=== PATIENT | male | born 1965 | race Caucasian/White ===

== ENCOUNTER 2024-02-18 08:02 | Day surgery (SDC) | payer BC, SELFPAY ==
[2024-02-12 14:57] VITALS: BMI 26.4
--- OUTSIDE RECORDS SUMMARY | 2024-02-18 08:11 | XMS_ITS | Clinical Summary ---
Author Organization [facility] Address [address] [place] [address] Care Team Providers Care Head Trimmer Name Role Phone Alexis Nguyen DC Primary Care Provider [phone] Allergies No known active allergies Medications oxyCODONE (Roxicodone) 5 MG immediate release tabletIndication s:Sprain of left knee, unspecified ligament, initial encounter,Knee effusion, left,Hyperextens ion injury of left knee, initial encounter Take 1 tablet by mouth Every 4 (Four) Hours As Needed for Severe Pain. 8 tablet 2 Active multivitamin with minerals tablet tablet Take 1 tablet by mouth Daily. Active oxyCODONE (ROXICODONE) 5 MG immediate release tabletIndication s:Quadriceps tendon rupture, left, initial encounter Take 1-2 tablets by mouth Every 4 (Four) Hours As Needed for Moderate Pain. 24 tablet 2 Active aspirin EC 325 MG tablet Take 1 tablet by mouth Daily. 28 tablet 2 Active Active Problems Problem Noted Date Diagnosed Date Quadriceps tendon rupture, left, initial encount er 12/15/2021 Immunizations Name Administration Dates Next Due COVID-19 (DARRELL) 07/20/2020 Social History Tobacco Use Types Packs/Day Years Used Date Smoking Tobacco: Never Smokeless Tobacco: Never Alcohol Use Standard Drinks/Week Comments Yes 0 (1 standard drink = 0.6 oz pur e alcohol) social drinker Abuse Screen Answer Date Recorded Unsafe at Home or Work/School Not on file Feels Threatened by Someone? Not on file 09/2022 Does Anyone Keep You from Co ntacting Others or Doint Things Outside the Home? Not on file 12/23/2022 Physical Sign of Abuse Present Not on file 1 Housing Stability Answer Date Recorded Current Living Arrangements Not on file 09/2022 Potentially Unsafe Housing Conditions Not on shayy e 12/23/2022 Family and Community Support Answer Stanley e Recorded Help with Day-to-Day Activities Not on file 12/23/2022 Lonely or Isolated Not on file 12/23/2022 Employment Answer Date Recorded Do you want help finding or keeping work or a hill b? Not on file 12/23/2022 Disabilities Answer Date Recorded Concentrating, Remembering, or Making Decisions Difficulty Not on file 12/23/2022 Doing Errands Independently Difficulty Not on fi le 12/23/2022 Education Answer Date Recorded Help with school or training? Not on file Preferred Language Not on file 12/23/2022 Sex and Gender Information Value Date Recorded Sex Assigned at Not on file Legal Sex Male 12:15 PM EST Gender Identity Not on file Sexual Orientation Not on file Last Filed Vital Signs Vital Sign Reading Time Taken Comments Blood Pressure 131/72 12/15/2021 12:05 PM EDT Pulse 80 12/15/2021 11:30 AM EDT Temperature 36.9 ??C (98.4 ??F) 12/15/2021 12:05 PM E DT Respiratory Rate 17 12/15/2021 12:05 PM EDT Oxygen Saturation 100% 12/15/2021 12:05 PM EDT Inhaled Oxygen Concentration - - Weight 109 kg (240 lb) 12/15/2021 9:05 AM EDT Height 203.2 cm (6' 8 ) 12/15/2021 9:05 AM EDT Body Mass Index 26.37 12/15/2021 9:05 AM EDT Plan of Treatment Health Maintenance Due Date Last Done Comments COLOGUARD 1965 COLON CANCER SCREENING 5 YEA R SIGMOIDOSCOPY 1964 COLONOSCOPY 1964 COLORECTAL CANCER SCREENING 1964 CT COLONOGRAPHY 1964 FECAL OCCULT BLOOD TEST 1964 FIT Testing (1 year) 1964 TDAP/TD VACCINES (1 - Tdap) 01/02/1983 ANNUAL PHYSICAL 12/13/2021 HEPATITIS C SCREENING 12/13/2021 INFLUENZA VACCINE 09/17/2023 COVID-19 Vaccine (2023-2 5 season) 2023 07/20/2021, 01/12/2021, 07/20/2020 ZOSTER VACCINE Completed 02/16/2020, 11/13/2019 Pneumococcal Vaccine 0-64 Aged Out No longer eligible based on patient's age to complete this topic Medical Devices Implanted Type Area Assistant Food Service Manager Device Identifier Shelf Expiration Date Model / Serial / Lot Sut Bone Dynacord W/Os/6 Ndl 2pk Strip/Jeanmarie - [id number] Implanted:Qty : 1 on 12/15/2021 by Vamshi Ordoñez MD at [facility] Implant Left: Knee DEPUY MITEK [id number] 12/16/2025 [id number] / / [id number] Dev Contrl Tiss Stratafix Spiral Pgpcl 2/0fs 07x14ps - [id number] Implanted:Qty : 1 on 12/15/2021 by Vamshi Ordoñez MD at [facility] Implant Left: Knee [employer] J [id number] 12/16/2025 [id number] / / [id number] Insurance PPO Member Subscriber Plan / Payer (Ef fective 2021-Present) Name:Hiren Herrera Relation to Subscriber:Self Name:Hiren Herrera Payer ID:[id number] (NAIC) Type:Not on file Address: [facility] [id number] [place] [id number] Care Teams Head Trimmer Relationship Specialty Start Date End Date Alexis Nguyen DC [address] [place] [address] [place] [address] PCP - General Chiropractic Medicine 05/09/21
--- OUTSIDE RECORDS SUMMARY | 2024-02-18 08:11 | XMS_ITS | Encounter Summary ---
Author Organization [facility] Address [address] [place] [address] Care Team Providers Care Grease Renderer Name Role Phone Alexis Nguyen DC Primary Care Provider [phone] Reason for Visit * Auth/Cert Specialty Diagnoses / Procedures Referred By Contac t Referred To Contact Diagnoses Unspecified injury of left quadriceps muscle, fascia and tendon, initial encounter Procedures IN FIX QUAD/HAMSTR MUSC RUPT,PRIMARY KNEE QUADRICEPS TENDON REPAIR Referral ID Status Reason Start Date Expiration Date Visits Re quested Visits Authorized [id number] 1 Encounter Details Date Type Department Care Team (Late st Contact Info) Description 12/13/2021 8:30 AM EDT Pre-Admission Testing [facility] [address] [place] [id number] Social History Tobacco Use Types Packs/Day Years Used Date Smoking Tobacco: Never Smokeless Tobacco: Never Alcohol Use Standard Drinks/Week Comments Yes 0 (1 standard drink = 0.6 oz pur e alcohol) social drinker Sex and Gender Information Value Date Recorded Sex Assigned at Not on file Legal Sex Male 12:15 PM EST Gender Identity Not on file Sexual Orientation Not on file documented as of this encounter Last Filed Vital Signs Vital Sign Reading Time Taken Comments Blood Pressure - - Pulse - - Temperature - - Respiratory Rate - - Oxygen Saturation - - Inhaled Oxygen Concentration - - Weight 109 kg (240 lb) 12/13/2021 9:12 AM EDT Height 203.2 cm (6' 8 ) 12/13/2021 9:12 AM EDT Body Mass Index 26.37 12/13/2021 9:12 AM EDT documented in this encounter OR Notes * Elysia Bianchi J, RN - 12/13/2021 8:30 AM EDT CBC and CMP 12/11/21 during ER visit; Ha1c done in PAT Patient had a recent exposure to COVID 12/07/21 (cowrker) but denies symptoms today and has tested negative two times in the last 7 days. Called and spoke with Criss in Dr Ordoñez's office regarding exposure, per Criss 'do not test' because he needs the surgery either way. No consent order on original orders. Called and spoke with Criss and she will re fax orders to include consent. Patient to apply Chlorhexadine wipes to surgical area (as instructed) the night before procedure and the AM of procedure. Wipes provided. Patient instructed to drink 20 ounces of Gatorade and it needs to be completed 1 hour (for Main OR patients) or 2 hours (scheduled section & [facility] patients) before given arrival time for procedure (NO RED Gatorade) Patient verbalized understanding. An arrival time for procedure was not provided during PAT visit. If patient had any questions or concerns about their arrival time, they were instructed to contact their surgeon/physician. Additionally, if the patient referred to an arrival time that was acquired from their my chart account, patient was encouraged to verify that time with their surgeon/physician. Arrival times are NOT provided inPre Admission Testing Department. Patient denies any current skin issues. documented in this encounter Plan of Treatment Not on file documented as of this encounter Procedures Procedure Name Priority Date/Time Associated Diagnosis Comments ECG 12-LEAD Routine 12/13/2021 9:08 AM EDT HEMOGLOBIN A1C Routine 12/13/2021 8:59 AM EDT documented in this encounter Results * ECG 12 Lead (12/13/2021 9:08 AM EDT) QT Interval 344 ms BH ECG QTC Interval 413 ms ECG 12/13/2021 9:08 AM EDT 12/13/2021 9:59 AM EDT Narrative ECG - 12/13/2021 10:00 AM EDT Test Reason : PREOP Blood Pressure : ?? */* ?? mmHG Vent. Rate : ??87 BPM ? Atrial Rate : ??87 BPM ?? P-R Int : 172 ms ?QRS Dur : ??96 ms ?QT Int : 344 ms ? P-R-T Axes : ??73 ??-1 ??62 degrees ?? QTc Int : 413 ms Normal sinus rhythm with sinus arrhythmia Normal ECG No previous ECGs available Confirmed by JUAN PABLO ARCEO ([id number]) on 12/13/2021 9:59:59 AM Referred By: KJ ? Confirmed By: JUAN PABLO ARCEO Procedure Note Juan Pablo Arceo MD - 12/13/2021 Test Reason : PREOP Blood Pressure : */* mmHG Vent. Rate : 87 BPM Atrial Rate : 87 BPM P-R Int : 172 ms QRS Dur : 96 ms QT Int : 344 ms P-R-T Axes : 73 -1 62 degrees QTc Int : 413 ms Normal sinus rhythm with sinus arrhythmia Normal ECG No previous ECGs available Confirmed by JUAN PABLO ARCEO ([id number]) on 12/13/2021 9:59:59 AM Referred By: KJ Confirmed By: JUAN PABLO ARCEO Vamshi Ordoñez MD ECG ORDERABLES Final Result ECG * Hemoglobin A1c (12/13/2021 8:59 AM EDT) Pathologist [facility] Hemoglobin A1C 4.90 4.80 - 5.60 % 12/13/2021 10:18 AM EDT [facility] Blood Venipuncture / Unknown 12/13/2021 8:59 AM EDT 12/13/2021 9:18 AM EDT Narrative [facility] - 12/13/2021 10:18 AM EDT Hemoglobin A1C Ranges: Increased Risk for Diabetes ??5.7% to 6.4% Diabetes ? >= 6.5% Diabetic Goal ?< 7.0% Vamshi Ordoñez MD LAB BLOOD ORDERABLES F inal Result [facility]
[address] [place] [address], documented in this encounter Visit Diagnoses Not on filedocumented in this encounter Care Teams Grease Renderer Relationship Specialty Start Date End Date Alexis Nguyen DC [address] [place] [address] [place] [address] PCP - General Chiropractic Medicine 05/09/21 documented as of this encounter
--- OUTSIDE RECORDS SUMMARY | 2024-02-18 08:11 | XMS_ITS | Encounter Summary ---
Author Organization [facility] Address [address] [id number] Care Team Providers Care Family Law Legal Assistant Name Role Phone Alexis Nguyen DC Primary Care Provider [phone] Reason for Visit * Reason Comments Knee Pain Encounter Details Date Type Department Care Team (Late st Contact Info) Description 12/11/2021 12:27 AM EDT - 12/11/2021 5:50 AM EDT Emergency [facility] EMERGENCY DEPARTMENT [address] [place] [id number] Roberto Bonner MD [address] [place] [address] Sprain of left knee, unspecified ligament, initial encounter (Primary Dx); Knee effusion, left; Hyperextension injury of left knee, initial encounter Discharge Disposition: Home or Self Care Social History Tobacco Use Types Packs/Day Years Used Date Smoking Tobacco: Never Alcohol Use Standard Drinks/Week Comments Never 0 (1 standard drink = 0.6 oz pur e alcohol) Sex and Gender Information Value Date Recorded Sex Assigned at Not on file Legal Sex Male 12:15 PM EST Gender Identity Not on file Sexual Orientation Not on file documented as of this encounter Last Filed Vital Signs Vital Sign Reading Time Taken Comments Blood Pressure 125/75 12/11/2021 5:30 AM EDT Pulse 76 12/11/2021 5:30 AM EDT Temperature 36.7 ??C (98.1 ??F) 12/11/2021 12:30 AM E DT Respiratory Rate 17 12/11/2021 5:30 AM EDT Oxygen Saturation 95% 12/11/2021 5:30 AM EDT Inhaled Oxygen Concentration - - Weight 109 kg (240 lb) 12/11/2021 12:33 AM EDT Height 203.2 cm (6' 8 ) 12/11/2021 12:33 AM EDT Body Mass Index 26.37 12/11/2021 12:33 AM EDT documented in this encounter Discharge Instructions * Discharge Instructions* Roberto Bonner MD - 12/11/2021 5:16 AM EDT Keep the leg elevated as much as possible. Take anti-inflammatory such as ibuprofen regularly for the next few days. Use the provided crutches and knee immobilizer sparingly and only for comfort. Contact the provided orthopedic surgeon for follow-up. Please return to the ED or seek other medical care for any concerning symptoms. * Attachments The following attachments cannot be sent through Care Everywhere. * Articular Cartilage Injury (Kyrgyz) * Knee Effusion (Kyrgyz) documented in this encounter Medications at Time of Discharge oxyCODONE (Roxicodone) 5 MG immediate release tabletIndications: Sprain of left knee, unspecified ligament, initial encounter,Knee effusion, left,Hyperextensio n injury of left knee, initial encounter Take 1 tablet by mouth Every 4 (Four) Hours As Needed for Severe Pain. 8 tablet 12/11/2021 ibuprofen (ADVIL,MOTRIN) 600 MG tablet Take 1 tablet by mouth Every 6 (Six) Hours As Needed for Mild Pain. 20 tablet 12/11/2021 12/13/2021 methocarbamol (ROBAXIN) 750 MG tablet Take 1 tablet by mouth 3 (Three) Times a Day As Needed for Muscle Spasms. 15 tablet 05/09/2021 12/13/2021 documented as of this encounter ED Notes * Roberto Bonner MD - 12/11/2021 5:50 AM EDT EMERGENCY DEPARTMENT ENCOUNTER Pt Name: Hiren Herrera Pt : 1965 Room Number: Date of encounter: 12/11/2021 PCP: Alexis Nguyen DC ED Provider: Roberto Bonner MD Historian: Patient HPI: Chief Complaint: Fall, knee injury Context: Hiren Herrera is a 56-year-old man who presents the emergency department for evaluation of severe left knee pain and knee and thigh swelling after an injury shortly prior to arrival. He said he was getting out of a hot tub when he slipped he thinks he sustained a hyperextension injury ofthe left knee and had immediate severe pain and swelling. He has been able to place weight on the knee and is able to swing it back and forth but the swelling has progressed and become progressively more painful. He denies any weakness or numbness in his calf or foot. Denies any other injuries. No other complaints at this time. PAST MEDICAL HISTORY History reviewed. No pertinent past medical history. PAST SURGICAL HISTORY History reviewed. No pertinent surgical history. FAMILY HISTORY History reviewed. No pertinent family history. SOCIAL HISTORY Social History Socioeconomic History ??? Marital status: Tobacco Use ??? Smoking status: Never Smoker Substance and Sexual Activity ??? Alcohol use: Never ??? Drug use: Never ALLERGIES Patient has no known allergies. REVIEW OF SYSTEMS Review of Systems All systems reviewed and negative except for those discussed in HPI. PHYSICAL EXAM I have reviewed the triage vital signs and nursing notes. ED Triage Vitals [12/11/21 0030] Temp Heart Rate Resp BP SpO2 98.1 ??F (36.7 ??C) 70 15 135/84 96 % Temp src Heart Rate Source Patient Position BP Location FiO2 (%) Oral Monitor Sitting Right arm -- Physical Exam GENERAL: Appears awake and alert in obvious discomfort HENT: Nares patent. EYES: No scleral icterus. CV: Regular rhythm, regular rate. RESPIRATORY: Normal effort. No audible wheezes, rales or rhonchi. ABDOMEN: Soft, nontender MUSCULOSKELETAL: No deformities. Does not appreciate any deformities to the left knee but he has animpressive effusion in the left suprapatellar area with swelling and firmness extending into the thigh. Range of motion is limited by swelling. Distal to this he has strong dorsal pedal and posteriortibial pulse recognizes light touch over the lower leg and foot and has strong and intact plantar flexion and dorsiflexion. NEURO: Alert, moves all extremities, follows commands. SKIN: Warm, dry, no rash visualized. LAB RESULTS Recent Results (from the past 24 hour(s)) Comprehensive Metabolic Panel Collection Time: 12/11/21 2:05 AM Specimen: Blood Result Value Ref Range Glucose 106 (H) 65 - 99 mg/dL BUN 11 6 - 20 mg/dL Creatinine 0.72 (L) 0.76 - 1.27 mg/dL Sodium 145 136 - 145 mmol/L Potassium 3.7 3.5 - 5.2 mmol/L Chloride 110 (H) 98 - 107 mmol/L CO2 24.0 22.0 - 29.0 mmol/L Calcium 8.6 8.6 - 10.5 mg/dL Total Protein 6.1 6.0 - 8.5 g/dL Albumin 3.90 3.50 - 5.20 g/dL ALT (SGPT) 18 1 - 41 U/L AST (SGOT) 22 1 - 40 U/L Alkaline Phosphatase 35 (L) 39 - 117 U/L Total Bilirubin 0.4 0.0 - 1.2 mg/dL Globulin 2.2 gm/dL A/G Ratio 1.8 g/dL BUN/Creatinine Ratio 15.3 7.0 - 25.0 Anion Gap 11.0 5.0 - 15.0 mmol/L eGFR 106.6 >60.0 mL/min/1.73 CBC Auto Differential Collection Time: 12/11/21 2:05 AM Specimen: Blood Result Value Ref Range WBC 11.03 (H) 3.40 - 10.80 10*3/mm3 RBC 4.25 4.14 - 5.80 10*6/mm3 Hemoglobin 13.1 13.0 - 17.7 g/dL Hematocrit 37.2 (L) 37.5 - 51.0 % MCV 87.5 79.0 - 97.0 fL MCH 30.8 26.6 - 33.0 pg MCHC 35.2 31.5 - 35.7 g/dL RDW 13.1 12.3 - 15.4 % RDW-SD 41.9 37.0 - 54.0 fl MPV 11.6 6.0 - 12.0 fL Platelets 143 140 - 450 10*3/mm3 Neutrophil % 77.1 (H) 42.7 - 76.0 % Lymphocyte % 13.3 (L) 19.6 - 45.3 % Monocyte % 7.3 5.0 - 12.0 % Eosinophil % 1.3 0.3 - 6.2 % Basophil % 0.6 0.0 - 1.5 % Immature Grans % 0.4 0.0 - 0.5 % Neutrophils, Absolute 8.51 (H) 1.70 - 7.00 10*3/mm3 Lymphocytes, Absolute 1.47 0.70 - 3.10 10*3/mm3 Monocytes, Absolute 0.80 0.10 - 0.90 10*3/mm3 Eosinophils, Absolute 0.14 0.00 - 0.40 10*3/mm3 Basophils, Absolute 0.07 0.00 - 0.20 10*3/mm3 Immature Grans, Absolute 0.04 0.00 - 0.05 10*3/mm3 nRBC 0.0 0.0 - 0.2 /100 WBC If labs were ordered, I independently reviewed the results. RADIOLOGY XR Knee 1 or 2 View Left Result Date: 12/11/2021 2 views left knee CLINICAL INDICATION: Knee pain. COMPARISON: None. FINDINGS: Chondrocalcinosis noted in the medial compartment. No acute fracture or dislocation. Soft tissues are intact. A large suprapatellar effusion is present. 1. Degenerative changes without acute fracture. 2. Large suprapatellar joint effusion. Electronically signed by: Estevan Perdue M.D. 12/11/2021 12:[address] Angiogram Lower Extremity Bilateral Result Date: 12/11/2021 CTA bilateral lower extremities CLINICAL INDICATION: Leg pain and swelling. PROCEDURE: 125 cc Isovue-[address] images of the bilateral lower extremities were obtained. Three-dimensional construction generated. Coronal and sagittal MPR images provided. CT dose lowering techniques were used, to include: Automated exposure control, adjustment for patient size, and/or use of iterative reconstruction. COMPARISON: 12/11/2021. FINDINGS: CTA: The iliac arteries and bilateral lower extremity arteries are patent and normal in caliber. Three-vessel runoff seen below the knee. Minimal opacification is seen in the distal left lower extremity at the ankle. No aneurysm or dissection. No abrupt arterial cutoff. No active extravasation. CT: No fracture. Soft tissue swelling is present anteriorly about the left knee. 1. Incomplete opacification of the left lower extremity arterial tree at the ankle is nonspecific. This may be related to decreased in fill, but no abrupt cut off is seen to suggest arterial occlusion. No aneurysm or dissection. No evidence of acute arterial injury. 2. Soft tissue swelling about the left knee. Electronically signed by: Estevan Perdue M.D. 12/11/2021 1:56 AM Mountain Time I ordered and reviewed the above noted radiographic studies. I viewed images of x-ray of the knee which does not show any acute fractures or dislocation only the known large effusion. CTA of the bilateral lower extremities which does not reveal any acute arterial injury only the soft tissue edema. Formal over read was confusing discussing incomplete opacification around the ankle I contacted Dr. Tripp the on-call radiologist who confirmed that there is definitely no vascular injury he was only commenting that the edema is significant enough it does slightly delay the contrast getting to the left when compared with the right. See radiologist's dictation for official interpretation. PROCEDURES Procedures No orders to display MEDICATIONS GIVEN IN ER Medications sodium chloride 0.9 % bolus 1,000 mL (0 mL Intravenous Stopped 12/11/21 0206) HYDROmorphone (DILAUDID) injection 0.5 mg (0.5 mg Intravenous Given 12/11/21 0112) acetaminophen (TYLENOL) tablet 1,000 mg (1,000 mg Oral Given 12/11/21 0111) iopamidol (ISOVUE-370) 76 % injection 150 mL (125 mL Intravenous Given 12/11/21 0304) PROGRESS, DATA ANALYSIS, CONSULTS, AND MEDICAL DECISION MAKING All labs have been independently reviewed by me. All radiology studies have been reviewed by me andthe radiologist dictating the report. EKG's have been independently viewed and interpreted by me. ED Course as of 12/11/21 0936 [place] Dec 11, 2021 0054 In summary is a very nice 56-year-old man who presents the emergency department for evaluationof severe left knee pain and knee and thigh swelling after an injury shortly prior to arrival. He said he was getting out of a hot tub when he slipped he thinks he sustained a hyperextension injury of the left knee and had immediate severe pain and swelling. He has been able to place weight on the knee and is able to swing it back and forth but the swelling has progressed and become progressivelymore painful. He denies any weakness or numbness in his calf or foot. Denies any other injuries. Noother complaints at this time. [CC] ED Course User Index [CC] Roberto Bonner MD He arrived awake and alert but in obvious discomfort with impressive swelling over the left knee extending up into the left thigh. I do not appreciate any deformity, joint laxity, and he appears to be neurovascularly intact distal to this. He says the swelling continues to expand and I have concernfor hematoma with active extravasation. Obtaining stat x-ray but also ordering CTA of the bilaterallower extremities. Treated with acetaminophen, Dilaudid, IV fluids. No acute fracture with a large effusion on x-ray. CTA of the bilateral lower extremities also does not show vascular injury only soft tissue edema. It is certainly possible that he is done some sort of ligamentous injury but my exam is limited by swelling think he needs orthopedic surgery follow-up which she is agreeable to. Now that I know he does not have a vascular injury can treat with NSAIDs like ibuprofen. Counseled on keeping the leg elevated. He was provided crutches and immobilizer for comfort but advised that he canbear weight as tolerated and it is only for comfort while the swelling is bad. He was provided orthopedic surgery follow-up. Counseled on strict return precautions verbally expressed understanding ofthese. OF 09:36 EDT VITALS: BP - 125/75 HR - 76 TEMP - 98.1 ??F (36.7 ??C) (Oral) O2 SATS - 95% DIAGNOSIS Final diagnoses: Sprain of left knee, unspecified ligament, initial encounter Knee effusion, left Hyperextension injury of left knee, initial encounter DISPOSITION DISCHARGE Patient discharged in stable condition. Reviewed implications of results, diagnosis, meds, responsibility to follow up, warning signs and symptoms of possible worsening, potential complications and reasons to return to ER. Patient/Family voiced understanding of above instructions. Discussed plan for discharge, as there is no emergent indication for admission. Pt/family is agreeable and understands need for follow up and possible repeat testing. Pt/family is aware that discharge does not mean that nothing is wrong but that it indicates no emergency is currently present that requires admission and they must continue care with follow-up as given below or with a physician of their choice. FOLLOW-UP Rigoberto Catalan MD [address] [address] Call Call to arrange orthopedic surgery follow-up. Medication List New Prescriptions oxyCODONE 5 MG immediate release tablet Commonly known as: Roxicodone Take 1 tablet by mouth Every 4 (Four) Hours As Needed for Severe Pain. Changed ibuprofen 600 MG tablet Commonly known as: ADVIL,MOTRIN Take 1 tablet by mouth Every 6 (Six) Hours As Needed for Mild Pain. What changed: ?? medication strength ?? how much to take ?? when to take this ?? reasons to take this Where to Get Your Medications These medications were sent to [facility]/pharmacy #[id number] - [place], [place] - [address] - [phone] - [phone], [facility] [id number] Hours: 24-hours ?? ibuprofen 600 MG tablet ?? oxyCODONE 5 MG immediate release tablet Roberto Bonner MD 12/11/21 0941 documented in this encounter Plan of Treatment Not on file documented as of this encounter Procedures Procedure Name Priority Date/Time Associated Diagnosis Comments CT ANGIOGRAM LOWER EXTREMITY BILATERAL STAT 12/11/2021 3:01 AM EDT CBC WITH AUTO DIFFERENTIAL STAT 12/11/2021 2:05 AM EDT CBC AND DIFFERENTIAL STAT 12/11/2021 2:05 AM EDT COMPREHENSIVE METABOLIC PANEL STAT 12/11/2021 2:05 AM EDT XR KNEE 1 OR 2 VW LEFT STAT 1:43 AM EDT documented in this encounter Results * CT Angiogram Lower Extremity Bilateral (12/11/2021 3:01 AM EDT) Anatomical Region Laterality Modality Pelvis, Hip, Thigh, Knee, Lower Leg, Ankle, Foot Computed Tomography 12/11/2021 3:41 AM EDT Impressions 12/11/2021 3:56 AM EDT 1. Incomplete opacification of the left lower extremity arterial tree at the ankle is nonspecific. This may be related to decreased in fill, but no abrupt cut off is seen to suggest arterial occlusion. No aneurysm or dissection. No evidence of acute arterial injury. 2. Soft tissue swelling about the left knee. Electronically signed by: ??Estevan Perdue M.D. 12/11/2021 1:56 AM Mountain Time Narrative 12/11/2021 3:56 AM EDT CTA bilateral lower extremities CLINICAL INDICATION: Leg pain and swelling. PROCEDURE: 125 cc Isovue-[address] images of the bilateral lower extremities were obtained. Three-dimensional construction generated. Coronal and sagittal MPR images provided. CT dose lowering techniques were used, to include: Automated exposure control, adjustment for patient size, and/or use of iterative reconstruction. COMPARISON: 12/11/2021. FINDINGS: CTA: The iliac arteries and bilateral lower extremity arteries are patent and normal in caliber. Three-vessel runoff seen below the knee. Minimal opacification is seen in the distal left lower extremity at the ankle. No aneurysm or dissection. No abrupt arterial cutoff. No active extravasation. CT: No fracture. Soft tissue swelling is present anteriorly about the left knee. Procedure Note Estevan Perdue MD - 12/11/2021 CTA bilateral lower extremities CLINICAL INDICATION: Leg pain and swelling. PROCEDURE: 125 cc Isovue-[address] images of thebilateral lower extremities were obtained. Three-dimensional constructiongenerated. Coronal and sagittal MPR images provided. CT dose loweringtechniques were used, to include: Automated exposure control, adjustment for patient size, and/or use ofiterative reconstruction. COMPARISON: 12/11/2021. FINDINGS: CTA: The iliac arteries and bilateral lower extremity arteries are patentand normal in caliber. Three-vessel runoff seen below the knee. Minimalopacification is seen in the distal left lower extremity at the ankle. Noaneurysm or dissection. No abrupt arterial cutoff. No active extravasation. CT: No fracture. Soft tissue swelling is present anteriorly about the leftknee. IMPRESSION: 1. Incomplete opacification of the left lower extremity arterial tree atthe ankle is nonspecific. This may be related to decreased in fill, but noabrupt cut off is seen to suggest arterial occlusion. No aneurysm ordissection. No evidence of acute arterial injury. 2. Soft tissue swelling about the left knee. Electronically signed by: Estevan Perdue M.D. 12/11/2021 1:56 AM Mountain Time Roberto Bonner MD IM CT ORDERABLES Final Result * (ABNORMAL) CBC Auto Differential (12/11/2021 2:05 AM EDT) WBC 11.03(H) 3.40 - 10.80 10*3/mm3 12/11/2021 2:44 AM EDT [facility] RBC 4.25 4.14 - 5.80 10*6/mm3 12/11/2021 2:44 AM EDT [facility] Hemoglobin 13.1 13.0 - 17.7 g/dL 12/11/2021 2:44 AM EDT [facility] Hematocrit 37.2(L) 37.5 - 51.0 % 12/11/2021 2:44 AM EDT [facility] MCV 87.5 79.0 - 97.0 fL 12/11/2021 2:44 AM EDT [facility] MCH 30.8 26.6 - 33.0 pg 12/11/2021 2:44 AM EDT [facility] MCHC 35.2 31.5 - 35.7 g/dL 12/11/2021 2:44 AM EDT [facility] RDW 13.1 12.3 - 15.4 % 12/11/2021 2:44 AM EDT [facility] RDW-SD 41.9 37.0 - 54.0 fl 12/11/2021 2:44 AM EDT [facility] MPV 11.6 6.0 - 12.0 fL 12/11/2021 2:44 AM EDT [facility] Platelets 143 140 - 450 10*3/mm3 12/11/2021 2:44 AM EDT [facility] Neutrophil % 77.1(H) 42.7 - 76.0 % 12/11/2021 2:44 AM EDT [facility] Lymphocyte % 13.3(L) 19.6 - 45.3 % 12/11/2021 2:44 AM EDT [facility] Monocyte % 7.3 5.0 - 12.0 % 12/11/2021 2:44 AM EDT [facility] Eosinophil % 1.3 0.3 - 6.2 % 12/11/2021 2:44 AM EDT [facility] Basophil % 0.6 0.0 - 1.5 % 12/11/2021 2:44 AM EDT [facility] Immature Grans % 0.4 0.0 - 0.5 % 12/11/2021 2:44 AM EDT [facility] Neutrophils, Absolute 8.51(H) 1.70 - 7.00 10*3/mm3 12/11/2021 2:44 AM EDT [facility] Lymphocytes, Absolute 1.47 0.70 - 3.10 10*3/mm3 12/11/2021 2:44 AM EDT [facility] Monocytes, Absolute 0.80 0.10 - 0.90 10*3/mm3 12/11/2021 2:44 AM EDT [facility] Eosinophils, Absolute 0.14 0.00 - 0.40 10*3/mm3 12/11/2021 2:44 AM EDT [facility] Basophils, Absolute 0.07 0.00 - 0.20 10*3/mm3 12/11/2021 2:44 AM EDT [facility] Immature Grans, Absolute 0.04 0.00 - 0.05 10*3/mm3 12/11/2021 2:44 AM EDT [facility] nRBC 0.0 0.0 - 0.2 /100 WBC 12/11/2021 2:44 AM EDT [facility] Blood Line / Unknown 12/11/2021 2: 05 AM EDT 12/11/2021 2:41 AM EDT us Roberto Bonner MD LAB BLOOD ORDERABLES Fin al Result [facility]
[address] [place] [address], * (ABNORMAL) Comprehensive Metabolic Panel (12/11/2021 2:05 AM EDT) Glucose 106(H) 65 - 99 mg/dL 12/11/2021 3:02 AM EDT [facility] BUN 11 6 - 20 mg/dL 12/11/2021 3:02 AM EDT [facility] Creatinine 0.72(L) 0.76 - 1.27 mg/dL 12/11/2021 3:02 AM EDT [facility] Sodium 145 136 - 145 mmol/L 12/11/2021 3:02 AM T [facility] Potassium 3.7 3.5 - 5.2 mmol/L 12/11/2021 3:02 AM [facility] Comment:Slight hemolysis det ected by analyzer. Results may be affected. Chloride 110(H) 98 - 107 mmol/L 12/11/2021 3:02 AM EDT [facility] CO2 24.0 22.0 - 29.0 mmol/L 12/11/2021 3:02 AM T [facility] Calcium 8.6 8.6 - 10.5 mg/dL 12/11/2021 3:02 AM [facility] Total Protein 6.1 6.0 - 8.5 g/dL 12/11/2021 3:02 AM EDT [facility] Albumin 3.90 3.50 - 5.20 g/dL 12/11/2021 3:02 [facility] ALT (SGPT) 18 1 - 41 U/L 12/11/2021 3:02 AM T [facility] AST (SGOT) 22 1 - 40 U/L 12/11/2021 3:02 AM [facility] Alkaline Phosphatase 35(L) 39 - 117 U/L 12/11/2021 3:02 AM EDT [facility] Total Bilirubin 0.4 0.0 - 1.2 mg/dL 12/11/2021 3:02 AM EDT [facility] Globulin 2.2 gm/dL 12/11/2021 3:02 AM EDT [facility] Comment:Calculated Result A/G Ratio 1.8 g/dL 12/11/2021 3:02 AM EDT [facility] BUN/Creatinine Ratio 15.3 7.0 - 25.0 12/11/2021 3:02 AM EDT [facility] Anion Gap 11.0 5.0 - 15.0 mmol/L 12/11/2021 3:02 AM EDT [facility] eGFR 106.6 >60.0 mL/min/1. 73 12/11/2021 3:02 AM EDT [facility] Comment:National Kidney Foun dation and [place] [employer] of Nephrology (ASN) Task Force recommended calculation based on the Chronic Kidney Disease Epidemiology Collaboration (CKD-EPI) equation refit without adjustment for race. Blood Line / Unknown 12/11/2021 2: 05 AM EDT 12/11/2021 2:41 AM EDT Narrative [facility] - 12/11/2021 3:02 AM EDT GFR Normal >60 Chronic Kidney Disease <60 Kidney Failure <15 Roberto Bonner MD LAB BLOOD ORDERABLES Fin al Result [facility]
[address] [place] [address], * XR Knee 1 or 2 View Left (12/11/2021 1:43 AM EDT) Anatomical Region Laterality Modality Lower Extremities, Knee Left Radiogra phic Imaging 12/11/2021 2:08 AM EDT Impressions 12/11/2021 2:11 AM EDT 1. Degenerative changes without acute fracture. 2. Large suprapatellar joint effusion. Electronically signed by: ??Estevan Perdue M.D. 12/11/2021 12:11 AM Mountain Time Narrative 12/11/2021 2:11 AM EDT 2 views left knee CLINICAL INDICATION: Knee pain. COMPARISON: None. FINDINGS: Chondrocalcinosis noted in the medial compartment. No acute fracture or dislocation. Soft tissues are intact. A large suprapatellar effusion is present. Procedure Note Estevan Perdue MD - 12/11/2021 2 views left knee CLINICAL INDICATION: Knee pain. COMPARISON: None. FINDINGS: Chondrocalcinosis noted in the medial compartment. No acutefracture or dislocation. Soft tissues are intact. A large suprapatellareffusion is present. IMPRESSION: 1. Degenerative changes without acute fracture. 2. Large suprapatellar joint effusion. Electronically signed by: Estevan Perdue M.D. 12/11/2021 12:11 AM Mountain Time Roberto Bonner MD IMG DIAGNOSTIC IMAGING O RDERABLES Final Result documented in this encounter Visit Diagnoses Diagnosis Sprain of left knee, unspecified ligament, initial encounter- Primary Knee effusion, left Effusion of lower leg joint Hyperextension injury of left knee, initial encounter documented in this encounter Administered Medications Inactive Administered Medications - up to 3 most recent administrations Medication Order MAR Action Action Date Dose Rate Site acetaminophen (TYLENOL) tablet 1,000 mg 1,000 mg, Oral, Once, On 12/11/21 at 0056, For 1 dose, Based on patient request - if ordered for moderate or severe pain, provider allows for administration of a medication prescribed for a lower pain scale. Do not exceed 4 grams of acetaminophen in a 24 hr period. Max dose of 2gm for AST/ALT greater than 120 units/L If given for fever, use fever parameter: fever greater than 100.4 ??F. If given for pain, use the following pain scale: Mild Pain = Pain Score of 1-3, CPOT 1-2 Moderate Pain = Pain Score of 4-6, CPOT 3-4 Severe Pain = Pain Score of 7-10, CPOT 5-8 Given 12/11/2021 1:11 AM EDT 1,000 mg HYDROmorphone (DILAUDID) injection 0.5 mg 0.5 mg, Intravenous, Once, On 12/11/21 at 0056, For 1 dose, If given for pain, use the following pain scale: Mild Pain = Pain Score of 1-3, CPOT 1-2 Moderate Pain = Pain Score of 4-6, CPOT 3-4 Severe Pain = Pain Score of 7-10, CPOT 5-8 Given 12/11/2021 1:12 AM EDT 0.5 mg iopamidol (ISOVUE-370) 76 % injection 150 mL 150 mL, Intravenous, Once in Imaging, On 12/11/21 at 0306, For 1 dose Given 12/11/2021 3:04 AM EDT 125 mL sodium chloride 0.9 % bolus 1,000 mL 1,000 mL, Intravenous, at 1,000 mL/hr, Administer over 1 Hours, Once, On 12/11/21 at 0056, For 1 dose New Bag 12/11/2021 1:12 AM EDT 1,000 mL 1000 mL/hr documented in this encounter Active and Recently Administered Medications Times are shown in EDT. Scheduled Medication Order 12/09/2021 12/10/2021 12/11/2021 acetaminophen (TYLENOL) tablet 1,000 mg (COMPLETED) 1,000 mg, Oral, Once, On 12/11/21 at 0056, For 1 dose, Based on patient request - if ordered for moderate or severe pain, provider allows for administration of a medication prescribed for a lower pain scale. Do not exceed 4 grams of acetaminophen in a 24 hr period. Max dose of 2gm for AST/ALT greater than 120 units/L If given for fever, use fever parameter: fever greater than 100.4 ??F. If given for pain, use the following pain scale: Mild Pain = Pain Score of 1-3, CPOT 1-2 Moderate Pain = Pain Score of 4-6, CPOT 3-4 Severe Pain = Pain Score of 7-10, CPOT 5-8 0111 (Given - Provid er: Guillermo Bean RN) HYDROmorphone (DILAUDID) injection 0.5 mg (COMPLETED) 0.5 mg, Intravenous, Once, On 12/11/21 at 0056, For 1 dose, If given for pain, use the following pain scale: Mild Pain = Pain Score of 1-3, CPOT 1-2 Moderate Pain = Pain Score of 4-6, CPOT 3-4 Severe Pain = Pain Score of 7-10, CPOT 5-8 0112 (Given - Provid er: Guillermo Bean RN) iopamidol (ISOVUE-370) 76 % injection 150 mL (COMPLETED) 150 mL, Intravenous, Once in Imaging, On 12/11/21 at 0306, For 1 dose 0304 (Given - Provid er: Danyelle Bruce) sodium chloride 0.9 % bolus 1,000 mL (COMPLETED) 1,000 mL, Intravenous, at 1,000 mL/hr, Administer over 1 Hours, Once, On 12/11/21 at 0056, For 1 dose 0112 (New Bag - Prov ider: Guillermo Bean RN)[id number] (Stopped - Provider: Guillermo Bean RN) documented in this encounter Care Teams Family Law Legal Assistant Relationship Specialty Start Date End Date Alexis Nguyen [place] [facility] [place] [place] [id number] PCP - General Chiropractic Medicine 05/09/21 documented as of this encounter
--- OUTSIDE RECORDS SUMMARY | 2024-02-18 08:11 | XMS_ITS | Encounter Summary ---
[facility] [address] [place] [address] Care Team Providers Care Electrical And Instrumentation Mechanic Name Role Phone Alexis Nguyen DC Primary Care Provider [phone] Reason for Visit * Auth/Cert Specialty Diagnoses / Procedures Referred By Contac t Referred To Contact Diagnoses Unspecified injury of left quadriceps muscle, fascia and tendon, initial encounter Procedures IN FIX QUAD/HAMSTR MUSC RUPT,PRIMARY KNEE QUADRICEPS TENDON REPAIR Referral ID Status Reason Start Date Expiration Date Visits Re quested Visits Authorized [id number] 1 1 Encounter Details Date Type Department Care Team (Late st Contact Info) Description 12/15/2021 9:45 AM EDT - 12/15/2021 11:32 AM EDT Surgery [facility] [address] [place] [id number] Vamshi Ordoñez MD [address] [facility] [address] [place] [id number] KNEE QUADRICEPS TENDON REPAIR LEFT Social History Tobacco Use Types Packs/Day Years [...] Sign Reading Time Taken Comments Blood Pressure 123/70 12/15/2021 11:30 AM EDT Pulse 80 12/15/2021 11:30 AM EDT Temperature 36.9 ??C (98.4 ??F) 12/15/2021 11:30 AM E DT Respiratory Rate 16 12/15/2021 11:30 AM EDT Oxygen Saturation 97% 12/15/2021 11:30 AM EDT Inhaled Oxygen Concentration - - Weight 109 kg (240 lb) 12/15/2021 9:05 AM EDT Height 203.2 cm (6' 8 ) 12/15/2021 9:05 AM EDT Body Mass Index 26.37 12/15/2021 9:05 AM EDT documented in this encounter Discharge Summaries * MarcelMayelin, OT - 12/15/2021 12:01 PM EDT Images from the original note were not included. Acute Care - Occupational Therapy Discharge [facility] Patient Name: Hiren Herrera : 1965 Today's Date: 12/15/2021 Admit Date: 12/15/2021 Visit Dx: ICD-10-CM ICD-9-CM 1. Quadriceps tendon rupture, left, initial encounter S76.112A 843.8 Patient Active Problem List Diagnosis ??? Quadriceps tendon rupture, left, initial encounter Past Medical History: Diagnosis Date ??? 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 Essential tremor 11/2021 recently prescribed Propanolol but stopped for surgery ??? GERD (gastroesophageal reflux disease) ??? History of fall 12/11/2021 feel getting out of hot tub and injured left quadriceps ??? Peripheral neuropathy mild ??? Spinal stenosis Past Surgical History: Procedure Laterality Date ??? COLONOSCOPY ??? SKIN BIOPSY General Information Row Name 12/15/21 1242 OT Time and Intention Document Type discharge evaluation/summary -JY Mode of Treatment occupational therapy;individual therapy -JY Row Name 12/15/21 1242 General Information Patient Profile Reviewed yes -JY Prior Level of Function independent:;all household mobility;community mobility;gait;transfer;bed mobility;feeding;grooming;dressing;bathing;home management;cooking;cleaning;driving I in all ADLs, related t/fs, mobility w/o AD prior to fall and injury, since injury pt using crutches -JY Existing Precautions/Restrictions fall;brace on at all times;other (see comments) femoral catheter,WBAT w/ AD assistance as needed, braced locked in full extension and no bending at knee past 20-30 degrees when brace unlocked -JY Barriers to Rehab physical barrier immobilized in brace locked in full extension -JY Row Name 12/15/21 1242 Occupational Profile Environmental Supports and Barriers (Occupational Profile) BSC over toilet and within shower for seated option with adjustable height and BUE support, DME: crutches, FWW - Row Name 12/15/21 1242 Living Environment People in Home spouse - Row Name 12/15/21 1242 Home Main Entrance Number of Stairs, Main Entrance two -JY Stair Railings, Main Entrance railing on right side (ascending) - Row Name 12/15/21 1242 Stairs Within Home, Primary Stairs, Within Home, Primary 0 -JY Number of Stairs, Within Home, Primary none -JY Stair Railings, Within Home, Primary none -JY Row Name 12/15/21 1242 Cognition Orientation Status (Cognition) oriented x 4 -JY Row Name 12/15/21 1242 Safety Issues, Functional Mobility Safety Issues Affecting Function (Mobility) insight into deficits/self- awareness;awareness of need for assistance;safety precaution awareness -JY Impairments Affecting Function (Mobility) balance;endurance/activity tolerance;pain;strength;range of motion (ROM) -JY Comment, Safety Issues/Impairments (Mobility) pt alert and able to follow commands; cognizant of brace wearing; utilized FWW in standing -JY User Tirado (r) = Recorded By, (t) = Taken By, (c) = Cosigned By Initials Name Provider Type Mayelin Lantigua OT Occupational Therapist Mobility/ADL's Row Name 12/15/21 1249 Bed Mobility Bed Mobility supine-sit -JY Supine-Sit Stowell (Bed Mobility) modified independence -JY Bed Mobility, Safety Issues decreased use of legs for bridging/pushing -JY Assistive Device (Bed Mobility) head of bed elevated -JY Comment, (Bed Mobility) pt demonstrated ability to advance LEs to EOB and upright trunk into sitting w/o any physical A yet maintained HOB elevated and UE A to guide LLE to EOB with knee brace donnedand locked in full extension prior to any EOB or OOB activity -[facility] Name 12/15/21 1249 Transfers Transfers sit-stand transfer;stand-sit transfer -JY Comment, (Transfers) demonstrated recall of optimal hand placement for controlled ascend, descend from seated surfaces with necessary movement of LLE with knee brace locked in extension -JY Sit-Stand Stowell (Transfers) contact guard;2 person assist -JY Stand-Sit Stowell (Transfers) contact guard;2 person assist -[facility] Name 12/15/21 1249 Sit-Stand Transfer Assistive Device (Sit-Stand Transfers) walker, front-wheeled -[facility] Name 12/15/21 1249 Stand-Sit Transfer Assistive Device (Stand-Sit Transfers) walker, front-wheeled -[facility] Name 12/15/21 1249 Functional Mobility Functional Mobility- Comment defer to PT for specifics -[facility] 12/15/21 1249 Activities of Daily Living BADL Assessment/Intervention upper body dressing;bathing;lower body dressing -[facility] 12/15/21 1249 Mobility Extremity Weight-bearing Status left lower extremity -JY Left Lower Extremity (Weight-bearing Status) weight-bearing as tolerated (WBAT) -[facility] Name 12/15/21 1249 Upper Body Dressing Assessment/Training Stowell Level (Upper Body Dressing) doff;pajama/robe;don;pull-over garment;independent -JY Position (Upper Body Dressing) unsupported sitting;edge of bed sitting -[facility] 12/15/21 1249 Bathing Assessment/Intervention Stowell Level (Bathing) lower body;distal lower extremities/feet -JY Assistive Devices (Bathing) long-handled sponge -JY Comment, (Bathing) OT did not assess authentic bathing during session however educated pt, spouse and dtr present in room on optimal position, tech, seq for LBB using LH sponge as needed given decreased ability to reach distally at LLE; emphasized no showering while nerve cath still in place; pt able to return demo reach toward feet with LH sponge -[facility] Name 12/15/21 1249 Lower Body Dressing Assessment/Training Stowell Level (Lower Body Dressing) doff;don;socks;pants/bottoms;other (see comments);standby assist undergarments; only initial CGA for balance when managing pants and undergarments upward withrelease of UEs from FWW, stable remaining time in standing -JY Assistive Devices (Lower Body Dressing) long-handled shoe horn;divisional human resources director;sock- aid;other (see comments) issued pt LH AE to assist w/ LBD to maximize I and safety in reach while ROM decreased; educated pt and spouse present on each device -JY Position (Lower Body Dressing) unsupported sitting;supported standing -JY Comment, (Lower Body Dressing) Educated pt, spouse and dtr present on optimal position, tech, sequencing for LBD using AE for improved reach and I given decreased ROM at LLE with brace donned; specifically educated pt on seq for threading and unthreading while closely monitoring mgmt around nerve cath to prevent dislodging and how to manage around brace; pt performance -JY User Tirado (r) = Recorded By, (t) = Taken By, (c) = Cosigned By Initials Name Provider Type Mayelin Lantigua OT Occupational Therapist Obj/Interventions Row Name 12/15/21 1313 Sensory Assessment (Somatosensory) Sensory Assessment (Somatosensory) bilateral UE;sensation intact -JY Bilateral UE Sensory Assessment general sensation;light touch awareness;light touch localization;intact -JY Sensory Assessment denies any numbness or tingling at BUEs -JY Row Name 12/15/21 1313 Range of Motion Comprehensive General Range of Motion bilateral upper extremity ROM WNL -JY Row Name 12/15/21 1313 Strength Comprehensive (MMT) General Manual Muscle Testing (MMT) Assessment no strength deficits identified -JY Comment, General Manual Muscle Testing (MMT) Assessment BUE muscle strength functional for ADLs, related t/fs, based on observation 4+5 to 5/5 -JY Row Name 12/15/21 1313 Balance Balance Assessment sitting static balance;sitting dynamic balance;standing static balance;standing dynamic balance -JY Static Sitting Balance standby assist -JY Dynamic Sitting Balance other (see comments);standby assist LBD -JY Position, Sitting Balance unsupported;sitting edge of bed -JY Static Standing Balance contact guard -JY Dynamic Standing Balance contact guard -JY Position/Device Used, Standing Balance supported;walker, front-wheeled -JY Balance Interventions sitting;standing;static;dynamic;sit to stand;supported;occupation based/functional task -JY Comment, Balance no overt LOB during seated or standing tasks, initial CGA provided when pt standing to manage clothing and UEs released from AD for safety purposes -JY User Tirado (r) = Recorded By, (t) = Taken By, (c) = Cosigned By Initials Name Provider Type Mayelin Lantigua, OT Occupational Therapist Goals/Plan Row Name 12/15/211318 Transfer Goal 1 (OT) Activity/Assistive Device (Transfer Goal 1, OT) kci-an-uyjvk/lyjau-gd-pzs;rkg-kv-ouyni/zhenf-vb-abq;commode;commode, bedside without drop arms;walker, rolling -JY Stowell Level/Cues Needed (Transfer Goal 1, OT) contact guard required;verbal cues required -JY Time Frame (Transfer Goal 1, OT) short term goal (STG);by discharge -JY Progress/Outcome (Transfer Goal 1, OT) goal met - Row Name 12/15/211318 Dressing Goal 1 (OT) Activity/Device (Dressing Goal 1, OT) lower body dressing;long-handled shoe horn;divisional human resources director;sock-aid;other (see comments) d/d LB garments with AE PRN w/ knee braced donned in extension -JY Stowell/Cues Needed (Dressing Goal 1, OT) standby assist;verbal cues required -JY Time Frame (Dressing Goal 1, OT) short term goal (STG);by discharge -JY Progress/Outcome (Dressing Goal 1, OT) goal met - Row Name 12/15/211318 Toileting Goal 1 (OT) Activity/Device (Toileting Goal 1, OT) adjust/manage clothing;commode;commode, bedside without droparms;grab bar/safety frame;raised toilet seat -JY Stowell Level/Cues Needed (Toileting Goal 1, OT) contact guard required;verbal cues required -JY Time Frame (Toileting Goal 1, OT) short term goal (STG);by discharge -JY Progress/Outcome (Toileting Goal 1, OT) goal met - Row Name 12/15/21 442 Therapy Assessment/Plan (OT) Planned Therapy Interventions (OT) activity tolerance training;adaptive equipment training;BADL retraining;functional balance retraining;occupation/activity based interventions;patient/caregiver educa tion/training;transfer/mobility retraining -JY User Tirado (r) = Recorded By, (t) = Taken By, (c) = Cosigned By Initials Name Provider Type Mayelin Lantigua, LOS Occupational Therapist Clinical Impression Row Name 12/15/21 1402 Pain Assessment Pretreatment Pain Rating 0/10 - no pain -JY Posttreatment Pain Rating 2/10 -JY Pain Location - Side/Orientation Right -JY Pain Location - knee -JY Pre/Posttreatment Pain Comment pain did not limite pt in OT interventions -JY Pain Intervention(s) Repositioned;Ambulation/increased activity -JY Row Name 12/15/21 1402 12/15/21 1316 Plan of Care Review Plan of Care Reviewed With patient;spouse -JY patient;spouse -JY Progress no change OT IE -JY improving -JY Outcome Evaluation OT evaluation completed. Pt demonstrated improved occupational I in ADLs, related t/fs after OT education and ADL re training with AE. Pt's spouse present too and verbalizes/demonstrates competency in how to assist pt. Pt issued AE and demonstrated need for gross SBA to d/d socks, pants, undergarments and initial CGA for clothing mgmt in standing when UEs released from FWW, I in d/d gown and shirt, able to return demo reach toward feet for LBB (simulated) and CGA x 2 for STS wth FWW and ID for supine > sitting at EOB. Pt demonstrates fxl strength, ROM, coordination and endurance and gross skill set sufficient for return home with A at d/c. No further OT services mateusz anted at this time. -JY -- Row Name 12/15/21 1402 12/15/21 1316 Therapy Assessment/Plan (OT) Patient/Family Therapy Goal Statement (OT) -- to maximize I in ADLs, related t/fs, return to PLOF -JY Rehab Potential (OT) good, to achieve stated therapy goals -JY good, to achieve stated therapy goals -JY Criteria for Skilled Therapeutic Interventions Met (OT) yes;meets criteria -JY yes;meets criteria -JY Therapy Frequency (OT) evaluation only -JY evaluation only -JY Row Name 12/15/21 1402 12/15/21 1316 Therapy Plan Review/Discharge Plan (OT) Equipment Needs Upon Discharge (OT) dressing equipment;bathing equipment -JY dressing equipment;bathing equipment -JY Anticipated Discharge Disposition (OT) home with assist -JY home with assist -JY Row Name 12/15/21 1316 Vital Signs Pre Systolic BP Rehab 131 -JY Pre Treatment Diastolic BP 72 -JY Pretreatment Heart Rate (beats/min) 80 -JY Pre SpO2 (%) 99 -JY O2 Delivery Pre Treatment room air -JY O2 Delivery Intra Treatment room air -JY Post SpO2 (%) 99 -JY O2 Delivery Post Treatment room air -JY Pre Patient Position Supine -JY Intra Patient Position Standing -JY Post Patient Position Sitting -JY Row Name 12/15/21 1316 Positioning and Restraints Pre-Treatment Position in bed -JY Post Treatment Position bed -JY In Bed notified nsg;sitting EOB;call light within reach;encouraged to call for assist;with family/caregiver;with nsg;side rails up x2;with brace femoral nerve cath -JY User Tirado (r) = Recorded By, (t) = Taken By, (c) = Cosigned By Initials Name Provider Type Mayelin Lantigua, OT Occupational Therapist Outcome Measures Row Name 12/15/21 1322 How much help from another is currently needed... Putting on and taking off regular lower body clothing? 3 -JY Bathing (including washing, rinsing, and drying) 3 -JY Toileting (which includes using toilet bed erickson or urinal) 3 -JY Putting on and taking off regular upper body clothing 4 -JY Taking care of personal grooming (such as brushing teeth) 4 -JY Eating meals 4 -JY AM-PAC 6 Clicks Score (OT) 21 -JY Row Name 12/15/21 1351 How much help from another person do you currently need... Turning from your back to your side while in flat bed without using bedrails? 4 -HP Moving from lying on back to sitting on the side of a flat bed without bedrails? 4 -HP Moving to and from a bed to a chair (including a wheelchair)? 3 -HP Standing up from a chair using your arms (e.g., wheelchair, bedside chair)? 3 -HP Climbing 3-5 steps with a railing? 3 -HP To walk in hospital room? 3 -HP AM-PAC 6 Clicks Score (PT) 20 -HP Highest level of mobility 6 --> Walked 10 steps or more -HP Row Name 12/15/21 1351 12/15/21 1322 Functional Assessment Outcome Measure Options AM-PAC 6 Clicks Basic Mobility (PT) -HP AM-PAC 6 Clicks Daily Activity (OT)-MONICA User Tirado (r) = Recorded By, (t) = Taken By, (c) = Cosigned By Initials Name Provider Type Mayelin Lantigua OT Occupational Therapist HP Shilpa Andrew, PT Physical Therapist Occupational Therapy Education Title: PT OT LAYOUT MECHANIC Therapies (In Progress) Topic: Occupational Therapy (In Progress) Point: ADL training (Done) Description: Instruct learner(s) on proper safety adaptation and remediation techniques during self care or transfers. Instruct in proper use of assistive devices. Learning Progress Summary Patient Acceptance, E,D, VU,DU by MONICA at 12/15/2021 1201 Family Acceptance, E,D, VU,DU by MONICA at 12/15/2021 1201 Point: Home exercise program (Not Started) Description: Instruct learner(s) on appropriate technique for monitoring, assisting and/or progressing therapeutic exercises/activities. Learner Progress: Not documented in this visit. Point: Precautions (Done) Description: Instruct learner(s) on prescribed precautions during self-care and functional transfers. Learning Progress Summary Patient Acceptance, E,D, VU,DU by MONICA at 12/15/2021 1201 Family Acceptance, E,D, VU,DU by MONICA at 12/15/2021 1201 Point: Body mechanics (Done) Description: Instruct learner(s) on proper positioning and spine alignment during self-care, functional mobilityactivities and/or exercises. Learning Progress Summary Patient Acceptance, E,D, VU,DU by MONICA at 12/15/2021 1201 Family Acceptance, E,D, VU,DU by MONICA at 12/15/2021 1201 User Tirado Initials Effective Dates Name Provider Type Discipline MONICA 09/01/20 - Mayelin Rod OT Occupational Therapist OT OT Recommendation and Plan Planned Therapy Interventions (OT): activity tolerance training, adaptive equipment training, BADL retraining, functional balance retraining, occupation/activity based interventions, patient/caregiver education/training, transfer/mobility retraining Therapy Frequency (OT): evaluation only Plan of Care Review Plan of Care Reviewed With: patient, spouse Progress: no change (OT IE) Outcome Evaluation: OT evaluation completed. Pt demonstrated improved occupational I in ADLs, related t/fs after OT education and ADL re training with AE. Pt's spouse present too and verbalizes/demonstrates competency in how to assist pt. Pt issued LH AE and demonstrated need for gross SBA to d/d socks, pants, undergarments and initial CGA for clothing mgmt in standing when UEs released from FWW,I in d/d gown and shirt, able to return demo reach toward feet for LBB (simulated) and CGA x 2 for STS wth FWW and ID for supine > sitting at EOB. Pt demonstrates fxl strength, ROM, coordination and endurance and gross skill set sufficient for return home with A at d/c. No further OT services war ranted at this time. Plan of Care Reviewed With: patient, spouse Outcome Evaluation: OT evaluation completed. Pt demonstrated improved occupational I in ADLs, related t/fs after OT education and ADL re training with AE. Pt's spouse present too and verbalizes/demonstrates competency in how to assist pt. Pt issued LH AE and demonstrated need for gross SBA to d/d socks, pants, undergarments and initial CGA for clothing mgmt in standing when UEs released from FWW,I in d/d gown and shirt, able to return demo reach toward feet for LBB (simulated) and CGA x 2 for STS wth FWW and ID for supine > sitting at EOB. Pt demonstrates fxl strength, ROM, coordination and endurance and gross skill set sufficient for return home with A at d/c. No further OT services war ranted at this time. Time Calculation: Time Calculation- OT Row Name 12/15/21 1412 Time Calculation- OT OT Start Time 1201 -JY OT Received On 12/15/21 -JY Timed Charges 19053 - OT Therapeutic Activity Minutes 5 -JY 59682 - OT Self Care/Mgmt Minutes 20 -JY Untimed Charges OT Eval/Re-eval Minutes 46 -JY Total Minutes Timed Charges Total Minutes 25 -JY Untimed Charges Total Minutes 46 -JY Total Minutes 71 -JY User Tirado (r) = Recorded By, (t) = Taken By, (c) = Cosigned By Initials Name Provider Type Mayelin Lantigua OT Occupational Therapist Therapy Charges for Today Code Description Service Date Service Provider Modifiers Qty [id number] OT THERAPEUTIC ACT EA 15 MIN 12/15/2021 Mayelin Rod OT GO 1 [id number] OT SELF CARE/MGMT/TRAIN EA 15 MIN 12/15/2021 Mayelin Rod OT GO 1 [id number] OT EVAL LOW COMPLEXITY 4 12/15/2021 Mayelin Rod OT GO 1 OT Discharge Summary Anticipated Discharge Disposition (OT): home with assist Reason for Discharge: All goals achieved Outcomes Achieved: Able to achieve all goals within established timeline, Refer to plan of care forupdates on goals achieved Discharge Destination: Home with assist Mayelin Rod OT 12/15/2021 documented in this encounter Discharge Instructions * Discharge Instructions* Jose Diaz RN - 12/15/2021 11:12 AM EDT Images from the original note were not included. InfuBLOCK - Patient Information What is a pain pump? InfuBLOCK is a postoperative, non-narcotic pain relief system that delivers local anesthetic to or near the surgical site. This is a pain minimizing therapy that delivers an anesthetic (numbing) medicine to the nerve. The InfuBLOCK pain pump will continuously deliver a local anesthetic medication to block the pain in the area of your procedure. Where can I find information about my pain pump? For more information about your pain pump, scan the QR code. For additional patient resources, visit [employer]/smgjmsonx-zazu-lwfmpwbklh. The [employer] Nursing Hotline is Here for You 09/10. Call for Assistance. While your physician is your primary source for information about your treatment., there may be times during your treatment that you need assistance with your infusion pump. Our team of compassionateand knowledgeable Registered Nursed (RN) is here to assist every step of the way. Answers to questions about your infusion pump Tubing disconnect Assistance with pump alarms Dislodged catheter Excessive leakage noted from pump Inadequate pain control * Attachments The following attachments cannot be sent through Care Everywhere. * Incision and Drainage Care After (Martiniquais) * General Anesthesia Adult Care After (Martiniquais) documented in this encounter Medications at Time of Discharge aspirin EC 325 MG tablet Take 1 tablet by mouth Daily. 28 tablet 12/16/2021 multivitamin with minerals tablet tablet Take 1 tablet by mouth Daily. oxyCODONE (Roxicodone) 5 MG immediate release tabletIndications :Sprain of left knee, unspecified ligament, initial encounter,Knee effusion, left,Hyperextensi on injury of left knee, initial encounter Take 1 tablet by mouth Every 4 (Four) Hours As Needed for Severe Pain. 8 tablet 12/11/2021 oxyCODONE (ROXICODONE) 5 MG immediate release tabletIndications :Quadriceps tendon rupture, left, initial encounter Take 1-2 tablets by mouth Every 4 (Four) Hours As Needed for Moderate Pain. 24 tablet 12/15/2021 documented as of this encounter Progress Notes * Elsiha Gallegos CRNA - 12/15/2021 12:50 PM EDT YISEL Jacome Nerve Cath Post Op Call Patient Name: Hiren Herrera : 1965 Date of Discharge: 12/15/2021 Treatment Plan Pt called [facility] around 4:46 am secondary to increased pain. Pt's states pt had used the AUT[employer] COUNSELOR function with no improvement. Pt's states nerve cath dressing is intact and no leaking noted. Pt had just taken a pain med. DOUGIE HEATH instructed pt to take Tylenol an hour after the pain med and wouldcall them to come into the hospital to have nerve cath assessed under US later in the morning. DOUGIE HEATH called pt back to have them come in to the hospital. Pt's stated that she spoke with the [employer] RN and were going to manage it without coming into the hospital. documented in this encounter H&P Notes * Christiana Tom, BLENDER OPERATOR - 12/15/2021 8:50 AM EDT Pre-Op H&P Hiren Herrera [id number] 1965 Chief complaint: Left knee pain Subjective: Patient is a 56 y.o.male presents for scheduled surgery by Dr. Ordoñez. He anticipates a LEFT KNEE QUADRICEPS TENDON REPAIR today. He was seen in ER 12/11/21 after slipping getting out of a hot tub injuring his left knee. Knee xray showed Large suprapatellar joint effusion. He has been using crutches sin ce. Review of Systems: Constitutional-- No fever, chills or sweats. No fatigue. CV-- No chest pain, palpitation or syncope Resp-- No SOB, cough, hemoptysis Skin--No rashes or lesions Allergies: No Known Allergies Home Meds: Medications Prior to Admission Medication Sig Dispense Refill Last Dose ??? multivitamin with minerals tablet tablet Take 1 tablet by mouth Daily. Past Week at Unknown time ??? oxyCODONE (Roxicodone) 5 MG immediate release tablet Take 1 tablet by mouth Every 4 (Four) Hours As Needed for Severe Pain. 8 tablet 0 12/15/2021 at 0400 PMH: Past Medical History: Diagnosis Date ??? 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 Essential tremor 11/2021 recently prescribed Propanolol but stopped for surgery ??? GERD (gastroesophageal reflux disease) ??? History of fall 12/11/2021 feel getting out of hot tub and injured left quadriceps ??? Peripheral neuropathy mild ??? Spinal stenosis PSH: Past Surgical History: Procedure Laterality Date ??? COLONOSCOPY ??? SKIN BIOPSY Immunization History: Influenza: 2020 Pneumococcal: No Tetanus: UTD Covid x4: 2021 Social History: Tobacco: Social History Tobacco Use Smoking Status Never Smoker Smokeless Tobacco Never Used Alcohol: Social History Substance and Sexual Activity Alcohol Use Yes Comment: social drinker Physical Exam: VS: BP 148/77 HR 85 RR 16 T 97.7 Sat 98%RA General Appearance: Alert, cooperative, no distress, appears stated age Head: Normocephalic, without obvious abnormality, atraumatic Lungs: Clear to auscultation bilaterally, respirations unlabored Heart: Regular rate and rhythm, S1 and S2 normal Abdomen: Soft without tenderness Extremities: Extremities normal, atraumatic, no cyanosis or edema Skin: Skin color, texture, turgor normal, no rashes or lesions Neurologic: Grossly intact Results Review: LABS: Lab Results Component Value Date WBC 11.03 (H) 12/11/2021 HGB 13.1 12/11/2021 HCT 37.2 (L) 12/11/2021 MCV 87.5 12/11/2021 PLT 143 12/11/2021 NEUTROABS 8.51 (H) 12/11/2021 GLUCOSE 106 (H) 12/11/2021 BUN 11 12/11/2021 CREATININE 0.72 (L) 12/11/2021 NA 145 12/11/2021 K 3.7 12/11/2021 CL 110 (H) 12/11/2021 CO2 24.0 12/11/2021 CALCIUM 8.6 12/11/2021 ALBUMIN 3.90 12/11/2021 AST 22 12/11/2021 ALT 18 12/11/2021 BILITOT 0.4 12/11/2021 RADIOLOGY: 12/11/21 knee xray: FINDINGS: Chondrocalcinosis noted in the medial compartment. No acute fracture or dislocation. Softtissues are intact. A large suprapatellar effusion is present. ?? IMPRESSION: 1. Degenerative changes without acute fracture. 2. Large suprapatellar joint effusion. 12/11/21 CT LE: FINDINGS: ?? CTA: The iliac arteries and bilateral lower extremity arteries are patent and normal in caliber. Three-vessel runoff seen below the knee. Minimal opacification is seen in the distal left lower extremity at the ankle. No aneurysm or dissection. No abrupt arterial cutoff. No active extravasation. ?? CT: No fracture. Soft tissue swelling is present anteriorly about the left knee. ?? IMPRESSION: 1. Incomplete opacification of the left lower extremity arterial tree at the ankle is nonspecific. This may be related to decreased in fill, but no abrupt cut off is seen to suggest arterial occlusion. No aneurysm or dissection. No evidence of acute arterial injury. 2. Soft tissue swelling about the left knee. I reviewed the patient's new clinical results. Cancer Staging (if applicable) Cancer Patient: __ yes __no __unknown; If yes, clinical stage T:__ N:__M:__, stage group or __N/A Impression: Sprain of left knee; hyperextension injury of left knee Plan: LEFT KNEE QUADRICEPS TENDON REPAIR Christiana Tom APRN 12/15/2021 08:55 EDT Cosigned by Vamshi Ordoñez MD at 12/15/2021 9:20 AM EDT Associated attestation - Vamshi Ordoñez MD - 12/15/2021 9:20 AM EDT I have reviewed this documentation and agree. documented in this encounter Nursing Notes * Mayelin Rod OT - 12/15/2021 12:01 PM EDT Goal Outcome Evaluation: Plan of Care Reviewed With: patient, spouse Progress: no change (OT IE) Outcome Evaluation: OT evaluation completed. Pt demonstrated improved occupational I in ADLs, related t/fs after OT education and ADL re training with AE. Pt's spouse present too and verbalizes/demonstrates competency in how to assist pt. Pt issued AE and demonstrated need for gross SBA to d/d socks, pants, undergarments and initial CGA for clothing mgmt in standing when UEs released from FWW,I in d/d gown and shirt, able to return demo reach toward feet for LBB (simulated) and CGA x 2 for STS wth FWW and ID for supine > sitting at EOB. Pt demonstrates fxl strength, ROM, coordination and endurance and gross skill set sufficient for return home with A at d/c. No further OT services war ranted at this time. * Shilpa Andrew, PT - 12/15/2021 11:32 AM EDT Goal Outcome Evaluation: Plan of Care Reviewed With: patient, spouse Progress: no change Outcome Evaluation: PT eval complete. Pt performed bed mobility with SBA. Pt performed STS and amb 200' with CGAx2. Pt navigated 2 steps with FWW and CGAx2. No knee buckling or LOB noted. Activity limited by fatigue. Recommend d/c home with assist. documented in this encounter OR Notes * Op Note - Vamshi Ordoñez MD - 12/15/2021 10:00 AM EDT PREOPERATIVE DIAGNOSIS: Left knee quadriceps tendon rupture. POSTOPERATIVE DIAGNOSIS: Left knee quadriceps tendon rupture. PROCEDURE: Left knee quadriceps tendon repair. SURGEON: Vamshi Ordoñez MD CUSTOMER EXPERT: BECCA Cooper (Gravity Prospecting Operator Helper necessary during the case for retraction, assistance with repairing the tendon, and closure necessary for the completion of the case). ANESTHESIA: General with femoral catheter. ESTIMATED BLOOD LOSS: Minimal. COMPLICATIONS: None. SPECIMEN: None. IMPLANTS USED: Mitek Dynacord suture for the quad tendon repair. TOURNIQUET TIME: 42 minutes at 300 mmHg. INDICATIONS FOR PROCEDURE: This is a very pleasant 56-year-old male who injured his left knee getting out of his hot tub last Sunday, 5 days ago. He went to [facility] ER and referred to our clinic for definitive management. Evaluation in the office revealed findings consistent with complete quad tendon rupture. We obtained an MRI to confirm this. 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 We discussed all of the risks, benefits and alternatives of left knee quad tendon repair. Heagreed to proceed. Surgical consent form was signed. DESCRIPTION OF PROCEDURE: He was seen in the preoperative holding area. The left knee was marked toconfirm the correct operative site. He was seen by Anesthesia. He received Ancef 2 g IV prophylactic antibiotics within 1 hour of incision time. Anesthesia performed a femoral nerve catheter for perioperative pain control without difficulty. He was brought back to the operating room and general anesthesia was induced without difficulty. Non-sterile tourniquet was applied to the left thigh. Bump placed underneath the left hip. The left lower extremity was prepped and draped in the usual sterile fashion. Timeout was performed to confirm left quad tendon repair on the patient noted above. The lef t lower extremity was exsanguinated with esmarch and tourniquet was inflated to 300 mmHg. With the knee flexed about 30 degrees I then made a midline incision with a #10 blade scalpel, this was carried down to subcutaneous tissue. Full thickness medial and lateral flaps were elevated. A large hematoma was encountered and evacuated with Yankauer suction. The knee was copiously irrigated with Betadine soaked saline with bulb irrigation. He was seen to have complete quad tendon rupture of the proximal pole of the patellar tendon. The end of the quad tendon was cleaned up with scissors and #15 blade scalpel. He had complete medial and lateral retinaculum tears as well. We proceeded with the quad tendon repair. We made a bony trough of the proximal pole of the patella with a rongeur for placement of the quad tendon. We then placed 2 Dynacord sutures in the distal aspect of the quad tendon and a running modified [place] locking suture for a total of 4 suture limbs coming out the end of the quad tendon. These were then passed through 3 drill holes made in the patella going proximal to distal with the [email or web address] guidepin passing the suture limbs through the patellar drill hole as they were made. We then placed the knee in extension, quad tendon came down to the proximal pole of the patella and trough we had created nicely with the knee to extension. We tied the suture limbs of the distal pole of the patella. The knee was then flexed to 30 and 45 degrees and there was seen to be no gappingof the repair site with excellent tension at the repair. We then repaired the medial and lateral retinaculum tears with 0 Vicryl suture. The knee was once again copiously irrigated with bulb irrigation and Betadine-soaked saline. We then proceeded with closure with the knee flexed at 30 degrees. The dermis was closed with 2-0 Vicryl, the skin with running Stratafix 3-0 Monocryl subcuticular barbed suture. We then applied Exofin mesh dressing with glue, then a sterile dressing with 4 x 4's, ABD,Sof-Rol, and an Lan bandage. He was placed in a postop hinged knee brace locked at 0 degrees. Anesthesia was reversed without difficulty. He was transferred to the recovery room in stable condition. All sponge and needle counts were correct x 2. Postoperative plan: He may be weightbearing as tolerated with crutch assist as needed, with the brace locked in full extension. Do not bend the knee past 20-30 degrees when the brace is unlocked. Take aspirin for DVT prophylaxis starting tomorrow morning. Oxycodone as needed for pain. We will see him in the office in 2 weeks for his first postoperative check. In the meantime he can call [phone] for any questions or concerns. * Brief Op Note - Vamshi Ordoñez MD - 12/15/2021 10:00 AM EDT QUADRICEPS TENDON REPAIR Progress Note Hiren Odom Sharon 12/15/2021 Pre-op Diagnosis: left knee quad tendon tear Post-Op Diagnosis Codes: * Quadriceps tendon rupture, left, initial encounter [S76.112A] Procedure/CPT?? Codes: IN FIX QUAD/HAMSTR MUSC RUPT,PRIMARY [48024] Procedure(s): LEFT KNEE QUADRICEPS TENDON REPAIR Surgeon(s): Vamshi Ordoñez MD Gravity Prospecting Operator Helper: BECCA Fisher Anesthesia: General with femoral nerve catheter Staff: Steel Pan Form Placing Supervisor: Meena Armstrong RN; Gely Foster RN Scrub Person: Melvin Franco Vendor Tea Tree Farmer: Jace Vyas Instructor Business Education: Viviana Velasco PCT Gravity Prospecting Operator Helper: Kolton Espinoza RNFA Gravity Prospecting Operator Helper: Kolton Espinoza RNFA Estimated Blood Loss: minimal Urine Voided: * No values recorded between 12/15/2021 9:41 AM and 12/15/2021 10:53 AM * Specimens: None Drains: * No LDAs found * Findings: Left knee complete quadriceps tendon rupture Complications: None Tourniquet time: 42 minutes at 300 mmHg Gravity Prospecting Operator Helper: Kolton Espinoza RNFA was responsible for performing the following activities: Retraction, assistance with repair of the tendon and closure and their skilled assistance was necessary for the success of this case. Vamshi Ordoñez MD Date: 12/15/2021 Time: 11:02 EDT documented in this encounter Miscellaneous Notes * Therapy Evaluation - Shilpa Andrew, PT - 12/15/2021 11:32 AM EDT Images from the original note were not included. Patient Name: Hiren Herrera : 1965 Today's Date: 12/15/2021 Admit Date: 12/15/2021 Visit Dx: ICD-10-CM ICD-9-CM 1. Quadriceps tendon rupture, left, initial encounter S76.112A 843.8 Patient Active Problem List Diagnosis ??? Quadriceps tendon rupture, left, initial encounter Past Medical History: Diagnosis Date ??? 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 Essential tremor 11/2021 recently prescribed Propanolol but stopped for surgery ??? GERD (gastroesophageal reflux disease) ??? History of fall 12/11/2021 feel getting out of hot tub and injured left quadriceps ??? Peripheral neuropathy mild ??? Spinal stenosis Past Surgical History: Procedure Laterality Date ??? COLONOSCOPY ??? SKIN BIOPSY General Information Row Name 12/15/21 1339 Physical Therapy Time and Intention Document Type discharge evaluation/summary - Mode of Treatment physical therapy - Row Name 12/15/21 1339 General Information Patient Profile Reviewed yes - Prior Level of Function all household mobility;community mobility;gait;transfer;ADL's;min assist: - Existing Precautions/Restrictions fall;brace on at all times;other (see comments) femoral catheter,WBAT w/ AD assistance as needed, braced locked in full extension and no bending at knee past 20-30 degrees when brace unlocked - Barriers to Rehab physical barrier immobilized in brace locked in full extension - Row Name 12/15/21 1339 Living Environment People in Home spouse - Row Name 12/15/21 1339 Home Main Entrance Number of Stairs, Main Entrance two -HP Stair Railings, Main Entrance railing on right side (ascending) - Row Name 12/15/21 1339 Stairs Within Home, Primary Number of Stairs, Within Home, Primary none - Row Name 12/15/21 1339 Cognition Orientation Status (Cognition) oriented x 4 -HP Row Name 12/15/21 1339 Safety Issues, Functional Mobility Safety Issues Affecting Function (Mobility) insight into deficits/self- awareness;awareness of need for assistance;safety precaution awareness -HP Impairments Affecting Function (Mobility) balance;endurance/activity tolerance;pain;strength;range of motion (ROM) -HP User Tirado (r) = Recorded By, (t) = Taken By, (c) = Cosigned By Initials Name Provider Type Shilpa Andrew, ELISEO Physical Therapist Mobility Row Name 12/15/21 1341 Bed Mobility Bed Mobility supine-sit;sit-supine - Supine-Sit Stowell (Bed Mobility) modified independence -HP Sit-Supine [place] (Bed Mobility) modified independence -HP Assistive Device (Bed Mobility) head of bed elevated - Row Name 12/15/21 1341 Sit-Stand Transfer Sit-Stand [place]owell (Transfers) contact guard;2 person assist -HP Assistive Device (Sit-Stand Transfers) walker, front-wheeled -HP Row Name 12/15/21 1341 Gait/Stairs (Locomotion) [place]owell Level (Gait) contact guard;2 person assist -HP Assistive Device (Gait) walker, front-wheeled -HP Ambulated day of surgery or within 4 hours of PACU discharge yes -HP Distance in Feet (Gait) 200 -HP Deviations/Abnormal Patterns (Gait) bilateral deviations;base of support, narrow;weight shifting decreased;stride length decreased;gait speed decreased -HP Bilateral Gait Deviations forward flexed posture -HP Stowell Level (Stairs) contact guard;2 person assist -HP Assistive Device (Stairs) walker, front-wheeled -HP Handrail Location (Stairs) right side (ascending) -HP Number of Steps (Stairs) 2 -HP Ascending Technique (Stairs) [id number] -HP Descending Technique (Stairs) [id number] -HP Comment, (Gait/Stairs) Pt amb 200' with FWW and CGAx2. Pt navigated 2 steps with FWW and CGAx2. No LOB or knee buckling noted. Knee brace locked in extension throughout session. - Row Name 12/15/21 1341 Mobility Extremity Weight-bearing Status left lower extremity -HP Left Lower Extremity (Weight-bearing Status) weight-bearing as tolerated (WBAT) - User Tirado (r) = Recorded By, (t) = Taken By, (c) = Cosigned By Initials Name Provider Type Shilpa Andrew PT Physical Therapist Obj/Interventions [facility] Name 12/15/211341 Motor Skills Therapeutic Exercise -- -[facility] Name 12/15/211341 Hip (Therapeutic Exercise) Hip (Therapeutic Exercise) strengthening exercise - Hip Strengthening (Therapeutic Exercise) right;aBduction;3 repetitions -[facility] Name 12/15/211341 Knee (Therapeutic Exercise) Knee (Therapeutic Exercise) isometric exercises - Knee Isometrics (Therapeutic Exercise) right;quad sets;10 repetitions - Knee Strengthening (Therapeutic Exercise) right;SLR (straight leg raise);LAQ (long arc quad);heel slides;3 repetitions -[facility] Name 12/15/211341 Ankle (Therapeutic Exercise) Ankle (Therapeutic Exercise) AROM (active range of motion) - Ankle AROM (Therapeutic Exercise) bilateral;dorsiflexion;plantarflexion;10 repetitions -[facility] 12/15/211341 Balance Balance Assessment sitting static balance;sitting dynamic balance;sit to stand dynamic balance;standing static balance;standing dynamic balance - Static Sitting Balance standby assist - Dynamic Sitting Balance standby assist - Static Standing Balance contact guard - Dynamic Standing Balance contact guard - Position/Device Used, Standing Balance supported;walker, rolling - Balance Interventions sitting;standing;sit to stand;occupation based/functional task -[facility] Name 12/15/211341 Sensory Assessment (Somatosensory) Sensory Assessment (Somatosensory) LE sensation intact - User Tirado (r) = Recorded By, (t) = Taken By, (c) = Cosigned By Initials Name Provider Type Shilpa Andrew PT Physical Therapist Goals/Plan No documentation. Clinical Impression [facility] Name 12/15/211346 Pain Pretreatment Pain Rating 0/10 - no pain - Posttreatment Pain Rating 2/10 - Pain Location - Side/Orientation Right - Pain Location - knee -[facility] Name 12/15/211346 Plan of Care Review Plan of Care Reviewed With patient;spouse - Progress no change - Outcome Evaluation PT eval complete. Pt performed bed mobility with SBA. Pt performed STS and amb 200' with CGAx2. Pt navigated 2 steps with FWW and CGAx2. No knee buckling or LOB noted. Activity limited by fatigue. Recommend d/c home with assist. - Row Name 12/15/21 1347 Therapy Assessment/Plan (PT) Criteria for Skilled Interventions Met (PT) no;no problems identified which require skilled intervention - Row Name 12/15/21 1347 Vital Signs Pre Systolic BP Rehab -- VSS -HP Pre Patient Position Supine -HP Intra Patient Position Standing -HP Post Patient Position Supine - Row Name 12/15/21 1347 Positioning and Restraints Pre-Treatment Position in bed -HP Post Treatment Position bed -HP In Bed notified nsg;supine;fowlers;call light within reach;encouraged to call for assist;with family/caregiver;patient within staff view in PACU with nsg - User Tirado (r) = Recorded By, (t) = Taken By, (c) = Cosigned By Initials Name Provider Type Shilpa Dockery, PT Physical Therapist Outcome Measures Row Name 12/15/21 1351 How much help from another person do you currently need... Turning from your back to your side while in flat bed without using bedrails? 4 -HP Moving from lying on back to sitting on the side of a flat bed without bedrails? 4 -HP Moving to and from a bed to a chair (including a wheelchair)? 3 -HP Standing up from a chair using your arms (e.g., wheelchair, bedside chair)? 3 -HP Climbing 3-5 steps with a railing? 3 -HP To walk in hospital room? 3 - AM-PAC 6 Clicks Score (PT) 20 -HP Highest level of mobility 6 --> Walked 10 steps or more - Row Name 12/15/21 1351 12/15/21 1322 Functional Assessment Outcome Measure Options AM-PAC 6 Clicks Basic Mobility (PT) - AM-PAC 6 Clicks Daily Activity (OT)-MONICA User Tirado (r) = Recorded By, (t) = Taken By, (c) = Cosigned By Initials Name Provider Type Mayelin Lantigua, OT Occupational Therapist Shilpa Dockery, PT Physical Therapist Physical Therapy Education Title: PT OT LAYOUT MECHANIC Therapies (In Progress) Topic: Physical Therapy (Done) Point: Mobility training (Done) Learning Progress Summary Patient Acceptance, E,D, VU by at 12/15/2021 1351 Point: Home exercise program (Done) Learning Progress Summary Patient Acceptance, E,D, VU by at 12/15/2021 1351 Point: Body mechanics (Done) Learning Progress Summary Patient Acceptance, E,D, VU by at 12/15/2021 1351 Point: Precautions (Done) Learning Progress Summary Patient Acceptance, E,D, VU by at 12/15/2021 1351 User Tirado Initials Effective Dates Name Provider Type [facility] 08/17/20 - Shilpa Andrew, PT Physical Therapist PT PT Recommendation and Plan Plan of Care Reviewed With: patient, spouse Progress: no change Outcome Evaluation: PT eval complete. Pt performed bed mobility with SBA. Pt performed STS and amb 200' with CGAx2. Pt navigated 2 steps with FWW and CGAx2. No knee buckling or LOB noted. Activity limited by fatigue. Recommend d/c home with assist. Time Calculation: PT Charges Row Name 12/15/21 1132 Time Calculation Start Time 1132 -HP PT Received On 12/15/21 -HP Timed Charges 93722 - PT Therapeutic Exercise Minutes 10 -HP Untimed Charges PT Eval/Re-eval Minutes 50 -HP Total Minutes Timed Charges Total Minutes 10 -HP Untimed Charges Total Minutes 50 -HP Total Minutes 60 -HP User Tirado (r) = Recorded By, (t) = Taken By, (c) = Cosigned By Initials Name Provider Type Shilpa Andrew PT Physical Therapist Therapy Charges for Today Code Description Service Date Service Provider Modifiers Qty 99843230915 HC PT EVAL LOW COMPLEXITY 4 12/15/2021 Shilpa Andrew, PT GP 1 50543620824 HC PT THER SUPP EA 15 MIN 12/15/2021 Shilpa Andrew, PT GP 3 05357732032 HC PT THER PROC EA 15 MIN 12/15/2021 Shilpa Andrew, PT GP 1 PT G-Codes Outcome Measure Options: AM-PAC 6 Clicks Basic Mobility (PT) AM-PAC 6 Clicks Score (PT): 20 AM-PAC 6 Clicks Score (OT): 21 Shilpa Andrew PT 12/15/2021 documented in this encounter Plan of Treatment Not on file documented as of this encounter Procedures Procedure Name Priority Date/Time Associated Diagnosis Comments QUADRICEPS TENDON REPAIR 12/15/2021 9:26 AM EDT Quadriceps tendon rupture, left, initial encounter Special Needs PAXTON FITZPATRICK JR RYAN-PA* documented in this encounter Visit Diagnoses Diagnosis Quadriceps tendon rupture, left, initial encounter- Primary Quadriceps tendon rupture, left, initial encounter Quadriceps tendon rupture, left, initial encounter documented in this encounter Administered Medications Inactive Administered Medications - up to 3 most recent administrations Medication Order MAR Action Action Date Dose Rate Site acetaminophen (TYLENOL) tablet 1,000 mg 1,000 mg, Oral, Once, On [place] 12/15/21 at 0833, For 1 dose, Based on patient request [...] Pain Score of 7-10, CPOT 5-8 Given 12/15/2021 8:52 AM EDT 1,000 mg famotidine (PEPCID) tablet 20 mg 20 mg, Oral, Once, On [place] 12/15/21 at 0833, For 1 dose Given 12/15/2021 8:52 AM EDT 20 mg fentaNYL citrate (PF) (SUBLIMAZE) injection 50 mcg 50 mcg, Intravenous, Every 5 Minutes PRN, Moderate Pain, Starting on [place] 12/15/21 at 1052, For 5 doses, If given for pain, use the following pain scale: Mild Pain = Pain Score of 1-3, CPOT 1-2 Moderate Pain = Pain Score of 4-6, CPOT 3-4 Severe Pain = Pain Score of 7-10, CPOT 5-8 HYDROmorphone (DILAUDID) injection 0.5 mg 0.5 mg, Intravenous, Every 5 Minutes PRN, Severe Pain, Starting on [place] 12/15/21 at 1052, For 4 doses, Maximum total dose of hydromorphone is 2 mg. If given for pain, use the following pain scale: Mild Pain = Pain Score of 1-3, CPOT 1-2 Moderate Pain = Pain Score of 4-6, CPOT 3-4 Severe Pain = Pain Score of 7-10, CPOT 5-8 lactated ringers bolus 500 mL 500 mL, Intravenous, at 2,000 mL/hr, Administer over 0.25 Hours, Once As Needed, for hypovolemia, call anesthesiologist before initiating, Starting on [place] 12/15/21 at 1052, For 1 dose, Indications: HypovolemiaIndications:Hypovolemi a lactated ringers infusion 9 mL/hr, Intravenous, Continuous, Starting on [place] 12/15/21 at 0833, May switch to NS IV at [facility] if renal / if indicated Restarted 12/15/2021 10:41 AM EDT Currently Infusing 12/15/2021 9:44 AM EDT 9 mL/ hr New Bag 12/15/2021 8:54 AM EDT 9 mL/hr 9 mL/hr lidocaine PF 1% (XYLOCAINE) injection 0.5 mL 0.5 mL, Injection, Once As Needed, IV Start, Starting on [place] 12/15/21 at 0831, For 1 dose Given 12/15/2021 8:53 AM EDT 0.5 mL meloxicam (MOBIC) tablet 15 mg 15 mg, Oral, Once, On [place] 12/15/21 at 0833, For 1 dose, Do Not Give if CrCl < 15 mL/min If given for pain, use the following pain scale: Mild Pain = Pain Score of 1-3, CPOT 1-2 Moderate Pain = Pain Score of 4-6, CPOT 3-4 Severe Pain = Pain Score of 7-10, CPOT 5-8 Given 12/15/2021 8:52 AM EDT 15 mg pregabalin (LYRICA) capsule 75 mg 75 mg, Oral, Once, On [place] 12/15/21 at 0833, For 1 dose, {JAMEE} Given 12/15/2021 8:52 AM EDT 75 mg ropivacaine (NAROPIN) 0.2 % infusion (INFUSYSTEM) Peripheral Nerve, Continuous, Starting on [place] 12/15/21 at 0910, This order is limited to the infusion of one(1) bag of Ropivacaine. DO NOT REORDER without first contacting and obtaining approval from Acute Pain Service staff at [phone], Basal Rate: 1 mL/hr, Programmed Intermittent Bolus (PIB): 8 mL, PIB Lockout Interval: 120 min, [employer] Bolus: 8 mL, [employer] Lockout Interval: 30 min New Bag 12/15/2021 10:57 AM EDT 1,000 mg 1 mL/hr sodium chloride 1,000 mL with Povidone-Iodine 5 % 22.5 mL irrigation As Needed, Starting on [place] 12/15/21 at 1009 Given 12/15/2021 10:09 AM EDT sterile water irrigation solution As Needed, Starting on [place] 12/15/21 at 1000 Given 12/15/2021 10:00 AM EDT 1,000 mL documented in this encounter Active and Recently Administered Medications Times are shown in EDT. Scheduled Medication Order 12/13/2021 12/14/2021 12/15/2021 acetaminophen (TYLENOL) tablet 1,000 mg (COMPLETED) 1,000 mg, Oral, Once, On [place] 12/15/21 at 0833, For 1 dose, Based on patient request [...] = Pain Score of 7-10, CPOT 5-8 0852 (Given - Provid er: Sally Hare RN) ceFAZolin in dextrose (ANCEF) IVPB solution 2 g (COMPLETED) 2 g, Intravenous, Administer over 30 Minutes, Once, On [place] 12/15/21 at 0833, For 1 dose, For Patient Weight < 120 kg. Caution: Look alike/sound alike drug alert, Indications: Surgical Prophylaxis 0953 (Given - Provid er: Angel Matias CRNA) famotidine (PEPCID) tablet 20 mg (COMPLETED) 20 mg, Oral, Once, On [place] 12/15/21 at 0833, For 1 dose 0852 (Given - Provid er: Sally Hare RN) meloxicam (MOBIC) tablet 15 mg (COMPLETED) 15 mg, Oral, Once, On [place] 12/15/21 at 0833, For 1 dose, Do Not Give if CrCl < 15 mL/min If given for pain, use the following pain scale: Mild Pain = Pain Score of 1-3, CPOT 1-2 Moderate Pain = Pain Score of 4-6, CPOT 3-4 Severe Pain = Pain Score of 7-10, CPOT 5-8 0852 (Given - Provid er: Sally Hare RN) pregabalin (LYRICA) capsule 75 mg (COMPLETED) 75 mg, Oral, Once, On [place] 12/15/21 at 0833, For 1 dose, {JAMEE} 0852 (Given - Provid er: Sally Hare RN) Continuous Medication Order 12/13/2021 12/14/2021 12/15/2021 lactated ringers infusion 9 mL/hr, Intravenous, Continuous, Starting on [place] 12/15/21 at 0833, May switch to NS IV at [facility] if renal / if indicated 0854 (New Bag - Prov ider: Sally Hare RN)0944 (Currently Infusing - Provider: Angel Matias CRNA)1040 (Paused - Provider: Angel Matias CRNA - Comment: Switch to gravity)1041 (Restarted - Provider: Angel Matias CRNA) ropivacaine (NAROPIN) 0.2 % infusion (INFUSYSTEM) Peripheral Nerve, Continuous, Starting on [place] 12/15/21 at 0910, This order is limited to the infusion of one(1) bag of Ropivacaine. DO NOT REORDER without first contacting and obtaining approval from Acute Pain Service staff at [phone], Basal Rate: 1 mL/hr, Programmed Intermittent Bolus (PIB): 8 mL, PIB Lockout Interval: 120 min, [employer] Bolus: 8 mL, [employer] Lockout Interval: 30 min 1057 (New Bag - Prov ider: Jose Diaz RN) PRN Medication Order 12/13/2021 12/14/2021 12/15/2021 fentaNYL citrate (PF) (SUBLIMAZE) injection 50 mcg 50 mcg, Intravenous, Every 5 Minutes PRN, Moderate Pain, Starting on [place] 12/15/21 at 1052, For 5 doses, If given for pain, use the following pain scale: Mild Pain = Pain Score of 1-3, CPOT 1-2 Moderate Pain = Pain Score of 4-6, CPOT 3-4 Severe Pain = Pain Score of 7-10, CPOT 5-8 HYDROmorphone (DILAUDID) injection 0.5 mg 0.5 mg, Intravenous, Every 5 Minutes PRN, Severe Pain, Starting on [place] 12/15/21 at 1052, For 4 doses, Maximum total dose of hydromorphone is 2 mg. If given for pain, use the following pain scale: Mild Pain = Pain Score of 1-3, CPOT 1-2 Moderate Pain = Pain Score of 4-6, CPOT 3-4 Severe Pain = Pain Score of 7-10, CPOT 5-8 lactated ringers bolus 500 mL 500 mL, Intravenous, at 2,000 mL/hr, Administer over 0.25 Hours, Once As Needed, for hypovolemia, call anesthesiologist before initiating, Starting on [place] 12/15/21 at 1052, For 1 dose, Indications: Hypovolemia lidocaine PF 1% (XYLOCAINE) injection 0.5 mL (COMPLETED) 0.5 mL, Injection, Once As Needed, IV Start, Starting on [place] 12/15/21 at 0831, For 1 dose 0853 (Given - Provid er: Sally Hare RN) ondansetron (ZOFRAN) injection 4 mg 4 mg, Intravenous, Once As Needed, Nausea, Vomiting, Starting on [place] 12/15/21 at 1109, For 1 dose, If BOTH ondansetron (ZOFRAN) and promethazine (PHENERGAN) are ordered use ondansetron first and THEN promethazine IF ondansetron is ineffective. ondansetron (ZOFRAN) tablet 4 mg 4 mg, Oral, Once As Needed, Nausea, Starting on [place] 12/15/21 at 1109, For 1 dose, If BOTH ondansetron (ZOFRAN) and promethazine (PHENERGAN) are ordered use ondansetron first and THEN promethazine IF ondansetron is ineffective. oxyCODONE-acetaminophen (PERCOCET) 5-325 MG per tablet 1 tablet 1 tablet, Oral, Once As Needed, Moderate Pain, Starting on [place] 12/15/21 at 1109, For 7 days, Based on patient request - if ordered for moderate or severe pain, provider allows for administration of a medication prescribed for a lower pain scale. [JAMEE] Do not exceed 4 grams of acetaminophen in a 24 hr period. Max dose of 2gm for AST/ALT greater than 120 units/L If given for pain, use the following pain scale: Mild Pain = Pain Score of 1-3, CPOT 1-2 Moderate Pain = Pain Score of 4-6, CPOT 3-4 Severe Pain = Pain Score of 7-10, CPOT 5-8 sodium chloride 1,000 mL with Povidone-Iodine 5 % 22.5 mL irrigation (CANCELED) As Needed, Starting on [place] 12/15/21 at 1009 1009 (Given - Provid er: Vamshi Ordoñez MD) sterile water irrigation solution (CANCELED) As Needed, Starting on [place] 12/15/21 at 1000 1000 (Given - Provid er: Vamshi Ordoñez MD) documented in this encounter Care Teams Electrical [employer] Instrumentation Mechanic Relationship Specialty Start Date End Date Alexis Nguyen [place] [address] [place] [id number] PCP - General Chiropractic Medicine 05/09/21 documented as of this encounter
--- OUTSIDE RECORDS SUMMARY | 2024-02-18 08:11 | XMS_ITS | Encounter Summary ---
[facility] Address [address] [place] [address] Care Team Providers Care Gis Application Developer Name Role Phone Alexis Nguyen DC Primary Care Provider [phone] Reason for Visit * Auth/Cert Specialty Diagnoses / Procedures Referred By Contac t Referred To Contact Diagnoses Unspecified injury of left quadriceps muscle, fascia and tendon, initial encounter Procedures SC FIX QUAD/HAMSTR MUSC RUPT,PRIMARY KNEE QUADRICEPS TENDON REPAIR Referral ID Status Reason Start Date Expiration Date Visits Re quested Visits Authorized [id number] 1 1 Encounter Details Date Type Department Care Team (Latest Contact Info) Description 12/15/2021 7:57 AM EDT - 12/15/2021 12:50 PM EDT Hospital Encounter [facility] OR [address] [place] [id number] Vamshi Ordoñez MD [address] [facility] [address] [place] [address] Quadriceps tendon rupture, left, initial encounter (Primary Dx) Discharge Disposition: Home or Self Care Social [...] documented in this encounter Discharge Summaries * Mayelin Rod, OT - 12/15/2021 12:01 PM EDT Images from the original note were not included. Acute Care - Occupational Therapy Discharge [facility] Patient Name: Hiren Herrera : 1965 Today's Date: 12/15/2021 Admit Date: 12/15/2021 Visit Dx: ICD-10-CM ICD-9-CM 1. Quadriceps tendon rupture, left, initial encounter S76.112A 843.8 Patient Active Problem List Diagnosis ??? Quadriceps tendon rupture, left, initial encounter Past Medical History: Diagnosis Date ??? 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 Essential tremor 11/2021 recently prescribed Propanolol [...] height and BUE support, DME: crutches, FWW -JY Row Name 12/15/21 1242 Living Environment People in Home spouse -JY Row Name 12/15/21 1242 Home Main Entrance Number of Stairs, Main Entrance two -JY Stair Railings, Main Entrance railing on right side (ascending) -JY Row Name 12/15/21 1242 Stairs Within Home, [...] = Cosigned By Initials Name Provider Type JMayelin Lauren OT Occupational Therapist Mobility/ADL's Row Name 12/15/21 1249 Bed Mobility Bed Mobility supine-sit -JY Supine-Sit [place] (Bed Mobility) modified independence -JY Bed Mobility, [...] to any EOB or OOB activity -[facility] Name 12/15/21 1249 Transfers Transfers sit-stand transfer;stand-sit transfer -JY Comment, (Transfers) demonstrated recall of optimal hand placement for controlled ascend, descend from seated surfaces with necessary movement of LLE with knee brace locked in extension -JY Sit-Stand [place] (Transfers) contact guard;2 person assist -JY Stand-Sit [place] (Transfers) contact guard;2 person assist -[facility] Name 12/15/21 1249 Sit-Stand Transfer Assistive Device (Sit-Stand Transfers) walker, front-wheeled -[facility] Name 12/15/21 1249 Stand-Sit Transfer Assistive Device (Stand-Sit Transfers) walker, front-wheeled -[facility] Name 12/15/21 1249 Functional Mobility Functional Mobility- Comment defer to PT for specifics -[facility] 12/15/21 1249 Activities of Daily Living BADL Assessment/Intervention upper body dressing;bathing;lower body dressing -[facility] Name 12/15/21 1249 Mobility Extremity Weight-bearing Status left lower extremity -JY Left Lower Extremity (Weight-bearing Status) weight-bearing as tolerated (WBAT) -[facility] Name 12/15/21 1249 Upper Body Dressing Assessment/Training [place] Level (Upper Body Dressing) doff;pajama/robe;don;pull-over garment;independent -JY Position (Upper Body Dressing) unsupported sitting;edge of bed sitting -[facility] 12/15/21 1249 Bathing Assessment/Intervention [place] Level (Bathing) lower body;distal lower extremities/feet -JY [...] demo reach toward feet with LH sponge -[facility] 12/15/21 1249 Lower Body Dressing Assessment/Training [place] Level (Lower Body Dressing) doff;don;socks;pants/bottoms;other (see comments);standby assist undergarments; only initial CGA for balance when managing pants and undergarments upward withrelease of UEs from FWW, stable remaining time in standing -JY Assistive Devices (Lower Body Dressing) long-handled shoe horn;ocular pathologist;sock- aid;other (see comments) issued pt LH AE [...] (OT) Activity/Assistive Device (Transfer Goal 1, OT) ejc-bd-cqfde/vosjn-ys-mzn;wom-ur-ywmfl/myfve-em-vds;commode;commode, bedside without drop arms;walker, rolling -JY [place] Level/Cues Needed (Transfer Goal 1, OT) contact guard required;verbal cues required -JY Time Frame (Transfer Goal 1, OT) short term goal (STG);by discharge -JY Progress/Outcome (Transfer Goal 1, OT) goal met - Row Name 12/15/211318 Dressing Goal 1 (OT) Activity/Device (Dressing Goal 1, OT) lower body dressing;long-handled shoe horn;ocular pathologist;sock-aid;other (see comments) d/d LB garments with AE PRN w/ knee braced donned in extension -JY [place]/Cues Needed (Dressing Goal 1, OT) standby assist;verbal cues required -JY Time Frame (Dressing Goal 1, OT) short term goal (STG);by discharge -JY Progress/Outcome (Dressing Goal 1, OT) goal met - Row Name 12/15/21 131 Toileting Goal 1 (OT) Activity/Device (Toileting Goal 1, OT) adjust/manage clothing;commode;commode, bedside without droparms;grab bar/safety frame;raised toilet seat -JY [place] Level/Cues Needed (Toileting Goal 1, OT) contact guard required;verbal cues required -JY Time Frame (Toileting Goal 1, OT) short term goal (STG);by discharge -JY Progress/Outcome (Toileting Goal 1, OT) goal met - Row Name 12/15/21 131 Therapy Assessment/Plan (OT) Planned Therapy Interventions (OT) activity tolerance training;adaptive equipment training;BADL retraining;functional balance retraining;occupation/activity based interventions;patient/caregiver educa tion/training;transfer/mobility retraining -JY User Tirado (r) = Recorded By, (t) = Taken By, (c) = Cosigned By Initials Name Provider Type Mayelin Lantigua, OT Occupational Therapist Clinical Impression Row Name 12/15/21 [...] x 2 for STS wth FWW and NE for supine > sitting at EOB. Pt [...] Provider Type Mayelin Lantigua OT Occupational Therapist Shilpa Dockery, PT Physical Therapist Occupational Therapy Education Title: PT OT SUPERVISOR CUSTOMER COMPLAINT SERVICE Therapies (In Progress) Topic: Occupational Therapy (In [...] Name Provider Type Discipline MONICA 09/01/20 - Young, Mayelin, OT Occupational Therapist OT OT Recommendation and [...] x 2 for STS wth FWW and NE for supine > sitting at EOB. Pt [...] x 2 for STS wth FWW and NE for supine > sitting at EOB. Pt demonstrates fxl strength, ROM, coordination and endurance and gross skill set sufficient for return home with A at d/c. No further OT services war ranted at this time. Time Calculation: Time Calculation- OT Row Name 12/15/21 1412 Time Calculation- OT OT Start Time 1201 -JY OT Received On 12/15/21 -JY Timed Charges 45469 - OT Therapeutic Activity Minutes 5 -JY 20920 - OT Self Care/Mgmt Minutes 20 -JY [...] Description Service Date Service Provider Modifiers Qty [id number] OT THERAPEUTIC ACT EA 15 MIN 12/15/2021 Mayelin Rod OT GO 1 [id number] OT SELF CARE/MGMT/TRAIN EA 15 MIN 12/15/2021 Mayelin Rod OT GO 1 [id number] OT EVAL LOW COMPLEXITY 4 12/15/2021 Mayelin oRd OT GO 1 OT Discharge Summary Anticipated [...] QR code. For additional patient resources, visit [email or web address]. The [employer] Nursing Hotline is Here for You 09/10. [...] Everywhere. * Incision and Drainage Care After (Portuguese) * General Anesthesia Adult Care After (Portuguese) documented in this encounter Medications at Time [...] as of this encounter Progress Notes * Elisha Gallegos CRNA - 12/15/2021 12:50 PM EDT YISEL Jacome Nerve Cath Post Op Call Patient Name: Hiren Herrera : 1965 Date of Discharge: 12/15/2021 Treatment Plan Pt called DOUGIE around 4:46 am secondary to increased pain. Pt's states pt had used the ROAD CROSSING GUARD function with no improvement. Pt's states nerve cath dressing is intact and no leaking noted. Pt had just taken a pain med. DOUGIE HEATH instructed pt to take Tylenol an hour after the pain med and wouldcall them to come into the hospital to have nerve cath assessed under US later in the morning. DOUGIE SAFETY DEPOSIT BOXES CUSTODIAN called pt back to have them come in to the hospital. Pt's stated that she spoke with the [employer] RN and were going to manage it without coming into the hospital. 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 Essential tremor 11/2021 recently prescribed Propanolol [...] x 2 for STS wth FWW and NE for supine > sitting at EOB. Pt [...] quadriceps tendon repair. SURGEON: Vamshi Ordoñez MD CHECK GRADER: BECCA Cooper (Stamp Machine Servicer necessary during the case for retraction, assistance [...] Sunday, 5 days ago. He went to [facility] and referred to our clinic for definitive management. Evaluation in the office revealed findings consistent with complete quad tendon rupture. We obtained an MRI to confirm this. 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 We discussed all of the risks, benefits [...] the quad tendon and a running modified Carson locking suture for a total of 4 suture limbs coming out the end of the quad tendon. These were then passed through 3 drill holes made in the patella going proximal to distal with the Qvolve guidepin passing the suture limbs through the [...] check. In the meantime he can call [phone] for any questions or concerns. * Brief Op Note - Vamshi Ordoñez MD - 12/15/2021 10:00 AM EDT QUADRICEPS TENDON REPAIR Progress Note Hiren R Sharon 12/15/2021 Pre-op Diagnosis: left knee quad tendon tear Post-Op Diagnosis Codes: * Quadriceps tendon rupture, left, initial encounter [S76.112A] Procedure/CPT?? Codes: SC FIX QUAD/HAMSTR MUSC RUPT,PRIMARY [92314] Procedure(s): LEFT KNEE QUADRICEPS TENDON REPAIR Surgeon(s): Vamshi Ordoñez MD Stamp Machine Servicer: BECCA Fisher Anesthesia: General with femoral nerve catheter Staff: Document Coordinator: Meena Armstrong RN; Gely Foster RN Scrub Person: Melvin Franco Vendor Pneumatic Tube Fitter: Jace Vyas Resource Analyst: Viviana Velasco PCT Stamp Machine Servicer: Kolton Espinoza RNFA Stamp Machine Servicer: Kolton Espinoza RNFA Estimated Blood Loss: minimal Urine Voided: * No values recorded between 12/15/2021 9:41 AM and 12/15/2021 10:53 AM * Specimens: None Drains: * No LDAs found * Findings: Left knee complete quadriceps tendon rupture Complications: None Tourniquet time: 42 minutes at 300 mmHg Stamp Machine Servicer: Kolton Espinoza RNFA was responsible for performing [...] swallowing 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 Essential tremor 11/2021 recently prescribed Propanolol but stopped for surgery ??? GERD (gastroesophageal reflux disease) ??? History of fall 12/11/2021 feel getting out of hot tub and injured left quadriceps ??? Peripheral neuropathy mild ??? Spinal stenosis Past Surgical History: Procedure Laterality Date ??? COLONOSCOPY ??? SKIN BIOPSY General Information Row Name 12/15/21 133 Physical Therapy Time and Intention Document Type discharge evaluation/summary - Mode of Treatment physical therapy - Row Name 12/15/21 1333 General Information Patient Profile Reviewed yes - [...] in full extension - Row Name 12/15/21 1331 Living Environment People in Home spouse - Row Name 12/15/21 1339 Home Main Entrance Number of Stairs, Main Entrance two - Stair Railings, Main Entrance railing on right side (ascending) - Row Name 12/15/21 1339 Stairs Within Home, Primary Number of Stairs, Within Home, Primary none -HP Row Name 12/15/21 1339 Cognition Orientation Status (Cognition) oriented x 4 -HP Row Name 12/15/21 1339 Safety Issues, Functional Mobility Safety Issues Affecting Function (Mobility) insight into deficits/self- awareness;awareness of need for assistance;safety precaution awareness -HP Impairments Affecting Function (Mobility) balance;endurance/activity tolerance;pain;strength;range of motion (ROM) - User Tirado (r) = Recorded By, (t) = Taken By, (c) = Cosigned By Initials Name Provider Type HP Shilpa Andrew, ELISEO Physical Therapist Mobility Row Name 12/15/21 1341 Bed Mobility Bed Mobility supine-sit;sit-supine - Supine-Sit [place] (Bed Mobility) modified independence -HP Sit-Supine [place] (Bed Mobility) modified independence -HP Assistive Device (Bed Mobility) head of bed elevated - Row Name 12/15/21 1341 Sit-Stand Transfer Sit-Stand [place] (Transfers) contact guard;2 person assist - Assistive Device (Sit-Stand Transfers) walker, front-wheeled -HP Row Name 12/15/21 1341 Gait/Stairs (Locomotion) [place] Level (Gait) contact guard;2 person assist -HP Assistive Device (Gait) walker, front-wheeled -HP Ambulated day of surgery or within 4 hours of PACU discharge yes -HP Distance in Feet (Gait) 200 -HP Deviations/Abnormal Patterns (Gait) bilateral deviations;base of support, narrow;weight shifting decreased;stride length decreased;gait speed decreased -HP Bilateral Gait Deviations forward flexed posture -HP [place] Level (Stairs) contact guard;2 person assist -HP Assistive Device (Stairs) walker, front-wheeled -HP Handrail Location (Stairs) right side (ascending) -HP Number of Steps (Stairs) 2 -HP Ascending Technique (Stairs) [id number]-jrrj -HP Descending Technique (Stairs) [id number]-lz-oecb -HP Comment, (Gait/Stairs) Pt amb 200' with FWW and CGAx2. Pt navigated 2 steps with FWW and CGAx2. No LOB or knee buckling noted. Knee brace locked in extension throughout session. - Row Name 12/15/21 1341 Mobility Extremity Weight-bearing Status left lower extremity - Left Lower Extremity (Weight-bearing Status) weight-bearing as tolerated (WBAT) - User Tirado (r) = Recorded By, (t) = Taken By, (c) = Cosigned By Initials Name Provider Type Shilpa Andrew PT Physical Therapist Obj/Interventions [facility] Name 12/15/21 134 Motor Skills Therapeutic Exercise -- -[facility] Name 12/15/21 134 Hip (Therapeutic Exercise) Hip (Therapeutic Exercise) strengthening exercise - Hip Strengthening (Therapeutic Exercise) right;aBduction;3 repetitions -[facility] Name 12/15/21 134 Knee (Therapeutic Exercise) Knee (Therapeutic Exercise) isometric exercises - Knee Isometrics (Therapeutic Exercise) right;quad sets;10 repetitions - Knee Strengthening (Therapeutic Exercise) right;SLR (straight leg raise);LAQ (long arc quad);heel slides;3 repetitions -[facility] Name 12/15/21 134 Ankle (Therapeutic Exercise) Ankle (Therapeutic Exercise) AROM (active range of motion) - Ankle AROM (Therapeutic Exercise) bilateral;dorsiflexion;plantarflexion;10 repetitions -[facility] Name 12/15/21 134 Balance Balance Assessment sitting static balance;sitting dynamic balance;sit to stand dynamic balance;standing static balance;standing dynamic balance - Static Sitting Balance standby assist - Dynamic Sitting Balance standby assist - Static Standing Balance contact guard - Dynamic Standing Balance contact guard - Position/Device Used, Standing Balance supported;walker, rolling - Balance Interventions sitting;standing;sit to stand;occupation based/functional task -[facility] Name 12/15/21 134 Sensory Assessment (Somatosensory) Sensory Assessment (Somatosensory) LE sensation intact - User Tirado (r) = Recorded By, (t) = Taken By, (c) = Cosigned By Initials Name Provider Type Shilpa Andrew PT Physical Therapist Goals/Plan No documentation. Clinical Impression Row Name 12/15/211346 Pain Pretreatment Pain Rating 0/10 - no pain - Posttreatment Pain Rating 2/10 - Pain Location - Side/Orientation Right - Pain Location - knee -[facility] Name 12/15/21 134 Plan of Care Review Plan of Care [...] Position Standing -HP Post Patient Position Supine -HP Row Name 12/15/21 1347 Positioning and Restraints Pre-Treatment Position in bed -HP Post Treatment Position bed -HP In Bed notified nsg;supine;fowlers;call light within reach;encouraged to call for assist;with family/caregiver;patient within staff view in PACU with nsg -HP User Tirado (r) = Recorded By, (t) = Taken By, (c) = Cosigned By Initials Name Provider Type Shilpa Dockery PT Physical Therapist Outcome Measures Row Name [...] (PT) -HP AM-PAC 6 Clicks Daily Activity (OT)-JY User Tirado (r) = Recorded By, (t) = Taken By, (c) = Cosigned By Initials Name Provider Type Mayelin Lantigua OT Occupational Therapist Shilpa Dockery, PT Physical Therapist Physical Therapy Education Title: PT OT SUPERVISOR CUSTOMER COMPLAINT SERVICE Therapies (In Progress) Topic: Physical Therapy (Done) [...] Initials Effective Dates Name Provider Type Discipline 08/17/20 - Shilpa Andrew, PT Physical Therapist [...] PT Received On 12/15/21 -HP Timed Charges 04451 - PT Therapeutic Exercise Minutes 10 -HP [...] Description Service Date Service Provider Modifiers Qty [id number] HC PT EVAL LOW COMPLEXITY 4 12/15/2021 Shilpa Andrew, PT GP 1 [id number] HC PT THER SUPP EA 15 MIN 12/15/2021 Shilpa Andrew, PT GP 3 [id number] HC PT THER PROC EA 15 MIN [...] Primary Quadriceps tendon rupture, left, initial encounter documented [...] 0833, May switch to NS IV at [facility] if renal / if indicated Restarted 12/15/2021 [...] approval from Acute Pain Service staff at [phone], Basal Rate: 1 mL/hr, Programmed Intermittent Bolus (PIB): 8 mL, PIB Lockout Interval: 120 min, ROAD CROSSING GUARD Bolus: 8 mL, ROAD CROSSING GUARD Lockout Interval: 30 min New Bag 12/15/2021 10:57 AM EDT 1,000 mg 1 mL/hr documented in this encounter Active and [...] 0833, May switch to NS IV at [facility] if renal / if indicated 0854 (New [...] approval from Acute Pain Service staff at [phone], Basal Rate: 1 mL/hr, Programmed Intermittent Bolus (PIB): 8 mL, PIB Lockout Interval: 120 min, ROAD CROSSING GUARD Bolus: 8 mL, ROAD CROSSING GUARD Lockout Interval: 30 min 1057 (New Bag [...] mL irrigation (CANCELED) As Needed, Starting on [place] 12/15/21 at 1009 1009 (Given - Provid er: Vamshi Ordoñez MD) sterile water irrigation solution (CANCELED) As Needed, Starting on [place] 12/15/21 at 1000 1000 (Given - Provid er: Vamshi Ordoñez MD) documented in this encounter Care Teams Gis Application Developer Relationship Specialty Start Date End Date Alexis Nguyen [place] [address] [place] [address] PCP - General Chiropractic Medicine 05/09/21 documented as of this encounter
--- OUTSIDE RECORDS SUMMARY | 2024-02-18 08:11 | XMS_ITS | Encounter Summary ---
Author Organization [facility] Address [address] [place] [address] Care Team Providers Care Finger Cobbler Name Role Phone Alexis Nguyen DC Primary Care Provider [phone] Reason for Visit * Auth/Cert Specialty Diagnoses / Procedures Referred By Contac t Referred To Contact Diagnoses Unspecified injury of left quadriceps muscle, fascia and tendon, initial encounter Procedures [place] FIX QUAD/HAMSTR MUSC RUPT,PRIMARY KNEE QUADRICEPS TENDON REPAIR Referral ID Status Reason Start Date Expiration Date Visits Re quested Visits Authorized [id number] 1 1 Encounter Details Date Type Department Care Team (Latest Contact Info) Description 12/15/2021 9:10 AM EDT Anesthesia Event Converted [facility] ANESTHESIA [address] [place] [address] Social History Tobacco Use Types Packs/Day [...] on file documented as of this encounter Plan of Treatment Not on file documented as of this encounter Procedures Procedure Name Priority Date/Time Associated Diagnosis Comments ANESTHESIA PERIPHERAL BLOCK Routine 12/15/2021 8:13 AM EDT documented in this encounter Results * BH AN PERIPHERAL BLOCK CATHETER (12/15/2021 8:13 AM EDT) Narrative Kolton Clayton CRNA - 12/15/2021 8:13 AM EDT Kolton Clayton CRNA ? 12/15/2021 ??9:27 AM Femoral Catheter Patient reassessed immediately prior to procedure Stop time: 12/15/2021 9:20 AM Reason for block: at surgeon's request and post-op pain management Performed by STORAGE GARAGE MANAGER/CAA: Kolton Clayton CRNA Assisted by: Leigh Lara RN Preanesthetic Checklist Completed: patient identified, IV checked, site marked, risks and benefits discussed, surgical consent, monitors and equipment checked, pre-op evaluation and timeout performed Prep: Pt Position: supine Sterile barriers:gloves, cap, sterile barriers, mask and washed/disinfected hands Prep: ChloraPrep Patient monitoring: blood pressure monitoring, continuous pulse oximetry and EKG Procedure Sedation: yes Performed under: local infiltration Guidance:ultrasound guided ULTRASOUND INTERPRETATION. ??Using ultrasound guidance a 20 G gauge needle was placed in close proximity to the femoral nerve, at which point, under ultrasound guidance anesthetic was injected in the area of the nerve and spread of the anesthesia was seen on ultrasound in close proximity thereto. ??There were no abnormalities seen on ultrasound; a digital image was taken; and the patient tolerated the procedure with no complications. Images:still images obtained, printed/placed on chart Laterality:left Block Type:femoral Injection Technique:catheter Needle Type:echogenic and Tuohy Needle Gauge:18 G Resistance on Injection: none Catheter Size:20 G Cath Depth at skin: 8 cm Medications Used: fentaNYL citrate (PF) (SUBLIMAZE) injection, 100 mcg bupivacaine PF (MARCAINE) 0.25 % injection, 30 mL Med administered at 12/15/2021 8:13 AM Medications Preservative Free Saline:5ml Post Assessment Injection Assessment: negative aspiration for heme, no paresthesia on injection and incremental injection Patient Tolerance:comfortable throughout block Complications:no Additional Notes CATHETER A high-frequency linear transducer, with sterile cover, was placed in the inguinal crease to visualize the Femoral Vein, Artery, and Nerve (medial to lateral). The insertion site was prepped in sterile fashion. Skin and cutaneous tissue was infiltrated with 2-5 ml of 1% Lidocaine. Using ultrasound-guidance, an 18-gauge Contiplex Ultra 360 Touhy Needle was then inserted and advanced in-plane from lateral to medial with ultrasound guidance. The Touhy needle was directed below Fascia Iliacus towards the Femoral nerve. Preservative-free normal saline was utilized for hydro-dissection of tissue. Local anesthetic injection spread, in incremental 3-5 ml injections, was visualized lateral to the artery to surround the femoral nerve. Aspiration every 5 ml to prevent intravascular injection. Injection was completed with negative aspiration of blood and negative intravascular injection. Injection pressures were normal with minimal resistance. A 20-gauge Contiplex Echo catheter was placed through the needle and advanced out the tip of the Touhy 1-3 cm. The Touhy needle was then removed, and final catheter position verified lateral to the femoral artery. The catheter was secured in the usual fashion with skin glue, benzoin, steri-strips, CHG tegaderm and Label noting Nerve Block Catheter . Jerk tape applied at yellow connector and catheter connection. Kolton Clayton STORAGE GARAGE MANAGER ANESTHESIA ORDERABLES Edited Result - Final documented in this encounter Visit Diagnoses Not on filedocumented in this encounter Care Teams Finger Cobbler Relationship Specialty Start Date End Date Alexis Nguyen DC [address] [place] [address] [place] [address] PCP - General Chiropractic Medicine 05/09/21 documented as of this encounter
--- OUTSIDE RECORDS SUMMARY | 2024-02-18 08:11 | XMS_ITS | Encounter Summary ---
Author Organization [facility] Address [address] [place] [address] Care Team Providers Care Casing Worker Name Role Phone Alexis Nguyen DC Primary Care Provider [phone] Reason for Visit * Auth/Cert Specialty Diagnoses / Procedures Referred By Contac t Referred To Contact Diagnoses Unspecified injury of left quadriceps muscle, fascia and tendon, initial encounter Procedures NE FIX QUAD/HAMSTR MUSC RUPT,PRIMARY KNEE QUADRICEPS TENDON REPAIR Referral ID Status Reason Start Date Expiration Date Visits Re quested Visits Authorized [id number] 1 1 Encounter Details Date Type Department Care Team (Late st Contact Info) Description 12/15/2021 9:44 AM EDT Anesthesia Event [facility] OR [address] [place] [id number] Odin Cesar MD [address] [place] [id number] Anesthesia Record Procedure Summary Procedure Name Responsible Anesthesiologist Anesthesia Start Time Anesthesia Stop Time KNEE QUADRICEPS TENDON REPAIR LEFT (Left: Thigh) Odin Cesar MD 12/15/21 0944 12/15/21 1056 Events Date Time Event Comment 12/15/2021 0901 0942 AN Equip Check 0942 An Start Data 0944 An Start The patient was reevaluated immediately before moderate or deep sedation use and before anesthesia induction. 0947 An Induction 0948 An Intubation 1046 An Extubation 1050 an stop data 1056 Handoff to RN The following has been completed: 1. Identification of Patient, ha family member(s) or patient surrogate 2. Identification of the responsible Practitioner (primary service) 3. Discussion of the pertinent/attainable medical history 4. Discussion of the surgical/procedure course (procedure, reason for surgery, procedure performed) 5. Intraoperative anesthetic management and issue/concerns to include things such as airway, hemodynamics, narcotic, sedation level and paralytic management and intravenous fluids/blood products and urine output during the procedure 6. Expectations/Plans for the early post-procedure period to include things such as anticipated course (anticipatory guidance), complications, need for laboratory or ECG and medication administration 7. Opportunity for questions and acknowledgment of understanding of report from the receiving PACU/ICU team 1056 An Stop Meds Name Total lidocaine PF (XYLOCAINE) local injection 1% 50 mg propofol (DIPRIVAN) injection 200 mg Rocuronium 50 mg/5mL 40 mg sugammadex (BRIDION) 200 mg/2 mL injecti on 218 mg dexamethasone (DECADRON) 4 mg/mL 8 mg ondansetron 2 mg/mL 4 mg fentaNYL citrate (PF) (SUBLIMAZE) inject ion 200 mcg bupivacaine PF (MARCAINE) 0.25 % injecti on 30 mL ceFAZolin in dextrose (ANCEF) IVPB solut ion 2 g 2 g lactated ringers infusion 750 mL * Agents Name O2 N2O Air Desflurane * Blood No blood administrations on file. Lines, Drains, and Airways Type Details Placement Removal Wound 12/15/21; 1000; Left ; anterior; knee; Incision; N 12/15/21 1000 by Gely Foster, JUVENTINO Peripheral IV Placement Date: 11/18 12/08; Placement Time: 0852; Catheter Size: 18 G; Orientation: Posterior, Right; Location: Forearm; Site Prep: Chlorhexidine; Local Anes: Injectable; Insertion Attempts: 1; Patient Tolerance: Tolerated well; Removal Date: 12/15/21; Removal Time: 1245 12/15/21 0852 by Sally Hare RN 12/15/21 1245 by Jose Diaz, JUVENTINO Nerve Block 12/15/21; 0911 (cesar easton via procedure documentation); left; 12/22/21; 1011 12/15/21 0911 by Kolton Clayton CRNA 12/22/21 1011 by [place] Michael CRNA ETT Placement Date: 11/18 12/08; Placement Time: 09 (created via procedure documentation); Tube Size: 7.5 mm; Blade Size: 4; Location: Oral; Removal Date: 12/15/21; Removal Time: 1046 12/15/21 0951 by Angel Matias CRNA 12/15/21 1046 by nAgel Matias CRNA documented in this encounter Social History Tobacco Use Types Packs/Day Years [...] on file documented as of this encounter OR Notes * Anesthesia Postprocedure Evaluation - Angel Matias CRNA - 12/15/2021 10:56 AM EDT Patient: Hiren Herrera Procedure Summary Date: 12/15/21 Room / Location: [facility] OR [address] [place] [address] [facility] OR Anesthesia Start: 943 Anesthesia Stop: 1055 Procedure: LEFT KNEE QUADRICEPS TENDON REPAIR (Left Thigh) Diagnosis: Surgeons: Vamshi Ordoñez MD Provider: Odin Cesar MD Anesthesia Type: general ASA Status: 2 Anesthesia Type: general Vitals Vitals Value Taken Time BP Temp Pulse 87 12/15/21 1056 Resp SpO2 97 % 12/15/21 1056 Vitals shown include unvalidated device data. Post Anesthesia Care and Evaluation Patient location during evaluation: PACU Patient participation: complete - patient participated Level of consciousness: awake and responsive to verbal stimuli Pain score: 2 Pain management: adequate Airway patency: patent Anesthetic complications: No anesthetic complications Cardiovascular status: acceptable Respiratory status: acceptable Hydration status: acceptable Comments: Pt awake and responsive. SV. VSS. Report to RN. Patient Vitals in the past 24 hrs: 12/15/21 0905, BP:148/79, Temp:97.7 ??F (36.5 ??C), Temp src:Temporal, Pulse:86, Resp:16, SpO2:98 %, Height:203.2 cm (80 ), Weight:109 kg (240 lb) 133/78. p 72. r 16. t 98.1 * Anesthesia Procedure Notes - Angel Matias CRNA - 12/15/2021 9:51 AM EDT Associated Order(s): Airway Airway Urgency: elective Date/Time: 12/15/2021 9:51 AM Airway not difficult General Information and Staff Patient location during procedure: OR [employer]/CAA: Angel Matias CRNA Indications and Patient Condition Indications for airway management: airway protection Preoxygenated: yes MILS not maintained throughout Mask difficulty assessment: 1 - vent by mask Final Airway Details Final airway type: endotracheal airway Successful airway: ETT Cuffed: yes Successful intubation technique: direct laryngoscopy Facilitating devices/methods: intubating stylet Endotracheal tube insertion site: oral Blade: Heriberto Blade size: 4 ETT size (mm): 7.5 Cormack-Lehane Classification: grade I - full view of glottis Placement verified by: chest auscultation and capnometry Measured from: lips ETT/EBT to lips (cm): 20 Number of attempts at approach: 1 Assessment: lips, teeth, and gum same as pre-op and atraumatic intubation Additional Comments Negative epigastric sounds, Breath sound equal bilaterally with symmetric chest rise and fall * Anesthesia Procedure Notes - Kolton Clayton CRNA - 12/15/2021 9:07 AM EDT Associated Order(s): Femoral Catheter Femoral Catheter Patient reassessed immediately prior to procedure Stop time: 12/15/2021 9:20 AM Reason for block: at surgeon's request and post-op pain management Performed by [employer]/CAA: Kolton Clayton CRNA Assisted by: Leigh Lara [...] under: local infiltration Guidance:ultrasound guided ULTRASOUND INTERPRETATION. Using ultrasound guidance a 20 G gauge needle was placed in close proximity to the femoral nerve, at which point, under ultrasound guidance anesthetic was injected in the area of the nerve and spread of the anesthesia was seen on ultrasound in close proximity thereto. There were no abnormalities seen on ultrasound; a [...] Touhy Needle was then inserted and advanced in- plane from lateral to medial with ultrasound guidance. [...] A 20-gauge Contiplex Echo catheter was placed throughthe needle and advanced out the tip of the Touhy 1-3 cm. The Touhy needle was then removed, and final catheter position verified lateral to the femoral artery. The catheter was secured in the usual fashion with skin glue, benzoin, steri-strips, CHG tegaderm and Label noting Nerve Block Catheter . Jerk tape applied at yellow connector and catheter connection. * Anesthesia Preprocedure Evaluation - Odin Cesar MD - 12/15/2021 8:40 AM EDT Anesthesia Evaluation Patient summary reviewed and Nursing notes reviewed Airway Mallampati: I TM distance: >3 FB Neck ROM: full No difficulty expected Dental - normal exam Pulmonary - negative pulmonary ROS and normal exam Cardiovascular - negative cardio ROS and normal exam Neuro/Psych (+) tremors, numbness, GI/Hepatic/Renal/Endo (+) GERD, Musculoskeletal (-) negative ROS Abdominal - normal exam Bowel sounds: normal. 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 Plan discussed with [employer]. CODE STATUS: documented in this encounter Plan of Treatment Not on file documented as of this encounter Procedures Procedure Name Priority Date/Time Associated Diagnosis Comments ANESTHESIA INTUBATION Routine 12/15/2021 9:51 AM EDT ANESTHESIA PERIPHERAL BLOCK Routine 12/15/2021 8:13 AM EDT documented in this encounter Results * BH AN ETT AIRWAY (12/15/2021 9:51 AM EDT) Narrative Angel Matias CRNA - 12/15/2021 9:51 AM EDT Angel Matias CRNA ? 12/15/2021 ??9:52 AM Airway Urgency: elective Date/Time: 12/15/2021 9:51 AM Airway not difficult General Information and Staff Patient location during procedure: OR KUMAR/CAA: Angel Matias CRNA Indications and Patient Condition Indications for airway management: airway protection Preoxygenated: yes MILS not maintained throughout Mask difficulty assessment: 1 - vent by mask Final Airway Details Final airway type: endotracheal airway Successful airway: ETT Cuffed: yes Successful intubation technique: direct laryngoscopy Facilitating devices/methods: intubating stylet Endotracheal tube insertion site: oral Blade: Heriberto Blade size: 4 ETT size (mm): 7.5 Cormack-Lehane Classification: grade I - full view of glottis Placement verified by: chest auscultation and capnometry Measured from: lips ETT/EBT ??to lips (cm): 20 Number of attempts at approach: 1 Assessment: lips, teeth, and gum same as pre-op and atraumatic intubation Additional Comments Negative epigastric sounds, Breath sound equal bilaterally with symmetric chest rise and fall us Angel Matias CRNA ANESTHESIA ORDERABLES Final R esult * BH AN PERIPHERAL BLOCK CATHETER (12/15/2021 8:13 AM EDT) Narrative Kolton Clayton CRNA - 12/15/2021 8:13 AM EDT Kolton Clayton CRNA ? 12/15/2021 ??9:27 AM Femoral Catheter Patient reassessed immediately prior to procedure Stop time: 12/15/2021 9:20 AM Reason for block: at surgeon's request and post-op pain management Performed by KUMAR/CAA: Kolton Clayton CRNA Assisted by: Leigh Lara [...] yellow connector and catheter connection. Kolton Clayton CRNA ANESTHESIA ORDERABLES Edited Result - Final documented in this encounter Visit Diagnoses Not on filedocumented in this encounter Administered Medications Inactive Administered Medications - up to 3 most recent administrations Medication Order MAR Action Action Date Dose Rate Site bupivacaine (PF) (MARCAINE) 0.25 % injection Injection, Starting on [place] 12/15/21 at 0907 Given 12/15/2021 8:13 AM EDT 30 mL ceFAZolin in dextrose (ANCEF) IVPB solution 2 g 2 g, Intravenous, Administer over 30 Minutes, Once, On [place] 12/15/21 at 0833, For 1 dose, For Patient Weight < 120 kg. Caution: Look alike/sound alike drug alert, Indications: Surgical ProphylaxisIndications:Surgical Prophylaxis Given 12/15/2021 9:53 AM EDT 2 g dexamethasone (DECADRON) injection Intravenous, As Needed, Starting on [place] 12/15/21 at 0951 Given 12/15/2021 9:51 AM EDT 8 mg fentaNYL citrate (PF) (SUBLIMAZE) injection Intravenous, Starting on [place] 12/15/21 at 0907 Given 12/15/2021 9:47 AM EDT 100 mcg Given 12/15/2021 8:13 AM EDT 100 mcg lactated ringers infusion 9 mL/hr, Intravenous, Continuous, Starting on [place] 12/15/21 at 0833, May switch to NS IV at KVO if renal / if indicated Restarted 12/15/2021 10:41 AM EDT Currently Infusing 12/15/2021 9:44 AM EDT 9 mL/ hr New Bag 12/15/2021 8:54 AM EDT 9 mL/hr 9 mL/hr lidocaine PF 1% (XYLOCAINE) injection Intravenous, As Needed, Starting on [place] 12/15/21 at 0947 Given 12/15/2021 9:47 AM EDT 50 mg ondansetron (ZOFRAN) injection Intravenous, As Needed, Starting on [place] 12/15/21 at 1033 Given 12/15/2021 10:33 AM EDT 4 mg Propofol (DIPRIVAN) injection Intravenous, As Needed, Starting on [place] 12/15/21 at 0947 Given 12/15/2021 9:47 AM EDT 200 mg rocuronium (ZEMURON) injection Intravenous, As Needed, Starting on [place] 12/15/21 at 0947 Given 12/15/2021 9:47 AM EDT 40 mg sugammadex (BRIDION) injection Intravenous, As Needed, Starting on [place] 12/15/21 at 1036 Given 12/15/2021 10:36 AM EDT 218 mg documented in this encounter Care Teams Casing Worker Relationship Specialty Start Date End Date Alexis Nguyen DC [address] [place] [address] Dr CHRISTINA BROWN [id number] PCP - General Chiropractic Medicine 05/09/21 documented as of this encounter
--- OUTSIDE RECORDS SUMMARY | 2024-02-18 08:12 | XMS_ITS | Encounter Summary ---
Author Organization [facility] Address [address] [place] [address] Care Team Providers Care Endodontist Name Role Phone Alexis Nguyen DC Primary Care Provider [phone] Reason for Visit * Reason Comments Back Pain Encounter Details Date Type Department Care Team (Late st Contact Info) Description 05/09/2021 12:15 PM EST - 05/09/2021 1:58 PM EST Emergency [facility] [address] [place] [id number] Sheng Odonnell MD [address] [facility] [place] [address] Acute bilateral low back pain without sciatica (Primary Dx); Back spasm Discharge Disposition: Home or Self Care Social [...] Sign Reading Time Taken Comments Blood Pressure 124/73 05/09/2021 1:58 PM EST Pulse 55 05/09/2021 1:58 PM EST Temperature 36.6 ??C (97.8 ??F) 05/09/2021 12:[address] Respiratory Rate 14 05/09/2021 1:58 PM EST Oxygen Saturation 100% 05/09/2021 1:58 PM EST Inhaled Oxygen Concentration - - Weight 99.8 kg (220 lb) 05/09/2021 12:18 PM EST Height 203.2 cm (6' 8 ) 05/09/2021 12:18 PM EST Body Mass Index 24.17 05/09/2021 12:18 PM EST documented in this encounter Discharge Instructions * Discharge Instructions* Gina Chung APRN - 05/09/2021 1:54 PM EST Take meds as ordered. Return immediately for worsening pain. Return for any loss of bowel or bladder function. Return for any saddle anesthesia. Return for any other concerns. If pain continues I suggest an MRI of your low back. * Attachments The following attachments cannot be sent through Care Everywhere. * Muscle Cramps and Spasms [id number] (Fijian) * Acute Back Pain Adult (Fijian) * Back Exercises [id number] (Fijian) documented in this encounter Medications at Time of Discharge ibuprofen (ADVIL,MOTRIN) 800 MG tablet Take 1 tablet by mouth 3 (Three) Times a Day With Meals. 15 tablet 05/09/2021 12/11/2021 methocarbamol (ROBAXIN) 750 MG tablet Take 1 tablet by mouth 3 (Three) Times a Day As Needed for Muscle Spasms. 15 tablet 05/09/2021 12/13/2021 documented as of this encounter ED Notes * Gina Chung APRN - 05/09/2021 12:15 PM EST Subjective Hiren Herrera is a 56 yr old male that presents the emergency department via EMS for complaints of low back pain. Patient explains that he has a history of spinal stenosis and from time to time he will pull a muscle in his back and experience extreme low back discomfort. Patient pulled a muscle in his back on . He is unsure exactly what he did. Since he has been applying heat and stretching daily. He explains this morning he woke up he did his stretches applied some heat to the area took [address] to his hand therapy appointment. While at his hand therapy appointmentthe patient did feel his back spasming up. Once his appointment was completed he attempted to get up out of his seat and was not able to ambulate. He explains that the physical therapist at the office attempted to help the patient but was unsuccessful. Every time he would try to get up his back with spasm and lock up. He denies any saddle anesthesia. No loss of bowel or bladder function. Patient advises this happened before about 10 to 15 years ago while he was in [place]. He explained that he w as seen at the ED are in [place] at this time. Patient was given high-dose muscle relaxers and anti-inflammatories patient was able to get home and continue with his stretches and applying heat. 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 Cardiovascular: Negative for chest pain. Gastrointestinal: Negative for bowel incontinence, nausea and vomiting. Genitourinary: Negative for bladder incontinence and difficulty urinating. Musculoskeletal: Positive for back pain. Neurological: Negative for tingling, weakness, numbness and paresthesias. History reviewed. No pertinent past medical history. No Known Allergies History reviewed. No pertinent surgical history. History reviewed. No pertinent family history. Social History Socioeconomic History ??? Marital status: Tobacco Use ??? Smoking status: Never Smoker Substance and Sexual Activity ??? Alcohol use: Never ??? Drug use: Never Objective Physical Exam Vitals and nursing note reviewed. Constitutional: General: He is in acute distress. Appearance: Normal appearance. He is well-developed. He is not toxic-appearing. Comments: Pain with movement. HENT: Head: Normocephalic and atraumatic. Eyes: General: Lids are normal. Conjunctiva/sclera: Conjunctivae normal. Neck: Trachea: Trachea normal. Cardiovascular: Rate and Rhythm: Regular rhythm. Pulses: Normal pulses. Heart sounds: Normal heart sounds. Pulmonary: Effort: Pulmonary effort is normal. No respiratory distress. Breath sounds: Normal breath sounds. No decreased breath sounds, wheezing, rhonchi or rales. Abdominal: General: Bowel sounds are normal. Palpations: Abdomen is soft. Tenderness: There is no abdominal tenderness. Musculoskeletal: Cervical back: Normal, full passive range of motion without pain and normal range of motion. Thoracic back: Normal. Lumbar back: Spasms and tenderness present. Decreased range of motion. Skin: General: Skin is warm and dry. Findings: No rash. Neurological: Mental Status: He is alert and oriented to person, place, and time. Cranial Nerves: No cranial nerve deficit. Psychiatric: Speech: Speech normal. Behavior: Behavior normal. Behavior is cooperative. Procedures ED Course ED Course as of 05/09/211942May 09, 2021 1349 Pt is able to ambulate without difficulty. Patient got up and use the restroom by himself. Patient advises he feels much better at this time. Patient will be discharged home. Patient to return as needed. If pain continues I suggest an MRI. [KG] ED Course User Index [KG] Gina Chung, JACK No results found for this or any previous visit (from the past 24 hour(s)). Note: In addition to lab results from this visit, the labs listed above may include labs taken at another facility or during a different encounter within the last 24 hours. Please correlate lab timeswith ED admission and discharge times for further clarification of the services performed during this visit. No orders to display Vitals: 05/09/21 1218 05/09/21 1232 05/09/21 1300 05/09/21 1358 BP: 133/81 138/79 124/73 Pulse: 53 59 55 Resp: 14 14 Temp: 97.8 ??F (36.6 ??C) TempSrc: Oral SpO2: 100% 99% 100% Weight: 99.8 kg (220 lb) Height: 203.2 cm (80 ) Medications ketorolac (TORADOL) injection 30 mg (30 mg Intramuscular Given 05/09/21 1242) diazePAM (VALIUM) tablet 10 mg (10 mg Oral Given 05/09/21 1241) HYDROcodone-acetaminophen (NORCO) 5-325 MG per tablet 1 tablet (1 tablet Oral Given 05/09/21 1241) ECG/EMG Results (last 24 hours) No results found for the last 24 hours. No orders to display MDM Final diagnoses: Acute bilateral low back pain without sciatica Back spasm ED Disposition ED Disposition ED Disposition Condition Comment Discharge Stable Alexis Nguyen, SARI [address] [place] [address] Medication List New Prescriptions ibuprofen 800 MG tablet Commonly known as: ADVIL,MOTRIN Take 1 tablet by mouth 3 (Three) Times a Day With Meals. methocarbamol 750 MG tablet Commonly known as: ROBAXIN Take 1 tablet by mouth 3 (Three) Times a Day As Needed for Muscle Spasms. Where to Get Your Medications These medications were sent to [facility]/pharmacy #[id number] - [place], [place] - [address] - [phone] - [phone] [address] , [facility] [id number] Hours: 24-hours ?? ibuprofen 800 MG tablet ?? methocarbamol 750 MG tablet Gina Chung APRN 05/09/211942 Cosigned by Sheng Odonnell MD at 05/15/2021 4:00 PM EST Associated attestation - Sheng Odonnell MD - 05/15/2021 4:00 PM EST SUPERVISE: For this patient encounter, I reviewed the APC's documentation, treatment plan, and medical decision making. Sheng Odonnell MD 05/15/2021 16:00 EST documented in this encounter Plan of Treatment Not on file documented as of this encounter Visit Diagnoses Diagnosis Acute bilateral low back pain without sciatica- Primary Back spasm Other symptoms referable to back documented in this encounter Administered Medications Inactive Administered Medications - up to 3 most recent administrations Medication Order MAR Action Action Date Dose Rate Site diazePAM (VALIUM) tablet 10 mg 10 mg, Oral, Once, On Sun05/09/21 at 1232, For 1 dose, {JAMEE} Caution: Look alike/sound alike drug alert. Avoid use with Frida's Wort. Avoid grapefruit juice. Given 05/09/2021 12:41 PM EST 10 mg HYDROcodone-acetaminophen (NORCO) 5-325 MG per tablet 1 tablet 1 tablet, Oral, Once, On Sun05/09/21 at 1232, For 1 dose, [JAMEE] Do not exceed 4 grams of acetaminophen in a 24 hr period. Max dose of 2gm for AST/ALT greater than 120 units/L If given for pain, use the following pain scale: Mild Pain = Pain Score of 1-3, CPOT 1-2 Moderate Pain = Pain Score of 4-6, CPOT 3-4 Severe Pain = Pain Score of 7-10, CPOT 5-8 Given 05/09/2021 12:41 PM EST 1 tablet ketorolac (TORADOL) injection 30 mg 30 mg, Intramuscular, Once, On Sun05/09/21 at 1232, For 1 dose, {BKC} If given for pain, use the following pain scale: Mild Pain = Pain Score of 1-3, CPOT 1-2 Moderate Pain = Pain Score of 4-6, CPOT 3-4 Severe Pain = Pain Score of 7-10, CPOT 5-8 Given 05/09/2021 12:42 PM EST 30 mg Left Deltoid documented in this encounter Active and Recently Administered Medications Times are shown in EST. Scheduled Medication Order 05/07/2021 05/08/2021 05/09/2021 diazePAM (VALIUM) tablet 10 mg (COMPLETED) 10 mg, Oral, Once, On Sun05/09/21 at 1232, For 1 dose, {JAMEE} Caution: Look alike/sound alike drug alert. Avoid use with [place]'s Wort. Avoid grapefruit juice. 1241 (Given - Provid er: Earle Obrien RN) HYDROcodone-acetaminophen (NORCO) 5-325 MG per tablet 1 tablet (COMPLETED) 1 tablet, Oral, Once, On Sun05/09/21 at 1232, For 1 dose, [JAMEE] Do not exceed 4 grams of acetaminophen in a 24 hr period. Max dose of 2gm for AST/ALT greater than 120 units/L If given for pain, use the following pain scale: Mild Pain = Pain Score of 1-3, CPOT 1-2 Moderate Pain = Pain Score of 4-6, CPOT 3-4 Severe Pain = Pain Score of 7-10, CPOT 5-8 1241 (Given - Provid er: Earle Obrien RN) ketorolac (TORADOL) injection 30 mg (COMPLETED) 30 mg, Intramuscular, Once, On 05/09/21 at 1232, For 1 dose, {BKC} If given for pain, use the following pain scale: Mild Pain = Pain Score of 1-3, CPOT 1-2 Moderate Pain = Pain Score of 4-6, CPOT 3-4 Severe Pain = Pain Score of 7-10, CPOT 5-8 1242 (Given - Provid er: Earle Obrien RN) documented in this encounter Care Teams Endodontist Relationship Specialty Start Date End Date Alexis Nguyen DC [address] [place] [address] [place] [address] PCP - General Chiropractic Medicine 05/09/21 documented as of this encounter
[2024-02-18] MEDS: LACTATED RINGERS 1000ML 1,000 ML 25 ML IV (09:03)
[2024-02-18 09:04] VITALS: BP 125/73; PULSE 59; RESP 18; TEMP 36.1; O2SAT 99
[2024-02-18 10:09] VITALS: O2SAT 100
--- NOTE | 2024-02-18 10:23 | P.HP_ITS ---
History of Present Illness *Admission Date: 02/18/24 *Reason for visit:: Dysphagia and screening *History of present illness: Mr. Herrera is a 59-year-old gentleman who is here for diagnostic/therapeutic upper endoscopy secondary to dysphagia and 10-year screening colonoscopy. The examination is deemed medically necessary for EGD and colonoscopy. The patient has been seen, interviewed and examined prior to the procedure by both myself and the anesthesia provider. [facility] Disclaimer: The information contained in this section may have been updated after the patient was seen, as this information can be updated by other users. Medical History (Updated 02/18/24 @ 10:24 by Jhonny Eden II, MD) No significant past medical history Surgical History History of esophagogastroduodenoscopy (EGD) Hx of colonoscopy Family History Other Family history of hypertension Social History Smoking Status: Never smoker alcohol intake: never current occupational status: employed Travel in the last 8 weeks: Inside the [place] Review of Systems Review of Systems Review of systems (narrative): Negative *Cardiovascular Comments: Negative *Gastrointestinal Comments: Negative *Genitourinary Comments: Negative *Musculoskeletal Comments: Negative *Neurologic Comments: Negative Meds Home Medications and Allergies Home Medications ?Medication ?Instructions ?Recorded ?Confirmed ?Type omega 3-osj-rmz-fish oil 1,600 1 ml PO DAILY 02/12/24 02/12/24 History mg-500 mg-800 mg/5 mL oral liquid (Fish Oil) propranolol 20 mg tablet 20 mg PO DAILY 02/12/24 02/12/24 History New Prescriptions to Start Prescriptions: Allergies Allergy/AdvReac Type Severity Reaction Status Date / Time No Known Allergies Allergy Verified 02/12/24 14:55 Exam Data for Last 24 hours Vital signs and Labs for Last 24 Hours: Temp Pulse Resp BP Pulse Ox O2 Del Method O2 Flow Rate 97.0 F L 59 L 18 125/73 99 Nasal Cannula 5 02/18/24 09:04 02/18/24 09:04 02/18/24 09:04 02/18/24 09:04 02/18/24 09:04 02/18/24 10:09 02/18/24 10:09 *Routine HEENT Exam Head: Present normocephalic Eye: Present EOMI and PERRL ENT: Present mucous membranes moist *Routine Neck Exam Neck: Present supple *Routine Respiratory Exam Respiratory: Present CTA bilaterally *Routine Cardiovascular Exam Cardiovascular: Present RRR *Routine Abdominal Exam Abdominal: Present soft and normoactive bowel sounds; Absent tenderness *Routine Rectal Exam Rectal:: deferred *Routine Genitalia Exam Genitalia:: deferred *Routine Extremities Exam Extremities: Absent cyanosis, clubbing or edema *Routine Skin Exam Skin: Present warm; Absent rash *Routine Neurological Exam Neurological: Present alert and oriented X3 Assessment and Plan *Assessment and plan (1) Dysphagia: Status: Acute Category: Medical Code(s): R13.10 - Dysphagia, unspecified (2) Screening for colon cancer: Status: Acute Category: Medical Code(s): Z12.11 - Encounter for screening for malignant neoplasm of colon Plan A/P: 1. Dysphagia for upper endoscopy and screening for colon cancer for colonoscopy is the preprocedural diagnosis. The patient will be anesthetized/sedated using MAC sedation. The patient has been seen and examined. Cardiac and lung assessment prior to the examination is stable. Proceed with planned EGD and colonoscopy
--- NOTE | 2024-02-18 10:30 | P.PCN_ITS ---
[facility] Procedure Note Date: 02/18/24 Time: 10:30 Procedure Note:: Upper Endoscopy Procedure Report: Esophagogastroduodenoscopy with cold biopsies and TTS balloon dilation Endoscopost: Jhonny Eden II, MD Referring Physician: Alexis Nguyen MD Date of Procedure: February 18, 2024 Equipment: Olympus GIF 190 standard upper endoscope Sedation: MAC sedation Indications: Mr. Herrera is a 59-year-old gentleman who is here for recurrent mild dysphagia to dry foods such as chicken or rice. He has had former dilation of a Schatzki's ring. He does get rare GERD for which he will take occasional Tums. He reports no heartburn or dyspepsia. He does get some frequent clearance of the throat and mild globus sensation. Procedure: Prior to the procedure, a history and physical exam was performed, and patient's medications and allergies were reviewed. The risks, benefits and alternatives of the sedation and procedure were discussed with the patient. All questions were answered and informed consent was obtained. The patient was brought to the procedure room. Patient identification and proposed procedure were verified by the physician and the nurse. The patient was placed in a left lateral decubitus position and the scope was passed under direct vision. Throughout the procedure , the patient's blood pressure, pulse, and oxygen saturations were monitored continuously. The upper GI endoscopy was accomplished without difficulty. The patient tolerated the procedure well. Findings: The scope was passed directly into the upper esophagus and advanced to the third portion of the duodenum. The post bulbar duodenum and duodenal bulb were normal with normal mucosa and conniventes. The scope was withdrawn through a normal duodenal bulb and pylorus into the stomach. There was very mild linear reactive gastropathy of the prepyloric antrum. The remainder of the antrum, body and fundus of the stomach were grossly normal. Upon retroflexion there was a very small sliding 1 to 2 cm hiatal hernia. The scope was then withdrawn into the esophagus. The esophagus was widely patent and there was a insignificant distal esophageal ring/Schatzki's ring. There was no evidence of reflux esophagitis or Simmons's. There was no corrugation or furrowing and no evidence of eosinophilic esophagitis. Biopsies were taken from the distal and proximal esophagus to rule out EOE. The entire esophagus was dilated to 60 Armenian/20 mm with a TTS hydrostatic balloon. There was some resistance at the cricopharyngeus/cricopharyngeal spasm. There was no inlet patch. The remainder of the esophageal mucosa was normal. Impression: 1. Cricopharyngeal spasm status post dilation to 20 mm 2. Mild esophageal dysmotility with insignificant Schatzki's ring and very small sliding 1 to 2 cm hiatal hernia 3. Very mild linear reactive gastropathy of antrum Plan: I will discuss the findings with the patient and family and follow-up the biopsies. I do feel that duodenal/bile reflux may be 1 etiology of nonerosive GERD, esophageal dysmotility and cricopharyngeal spasm.
--- NOTE | 2024-02-18 10:52 | P.PCN_ITS ---
[facility] Procedure Note Date: 02/18/24 Time: 10:52 Procedure Note:: Colonoscopy Procedure Report: Colonoscopy with cold biopsies Endoscopist: Jhonny Eden II, MD Referring physician: Alexis Nguyen MD Date of Procedure: February 18, 2024 Equipment: Olympus 190 variable stiffness pediatric colonoscope Sedation: MAC sedation Indication: Mr. Herrera is a 59-year-old gentleman who is here for follow-up screening colonoscopy. His last colonoscopy 10 years ago at age 49 was normal. He reports no abdominal pain, weight loss, change in his bowel habits or rectal bleeding. He reports no family history of colon cancer. Procedure: Prior to the procedure, a history and physical exam was performed, and patient's medications and allergies were reviewed. The risks, benefits and alternatives of the sedation and procedure were discussed with the patient. All questions were answered and informed consent was obtained. The patient was brought to the procedure room. Patient identification and proposed procedure were verified by the physician and the nurse. The patient was placed in a left lateral decubitus position and the scope was passed under direct vision. Throughout the procedure, the patient's blood pressure, pulse, and oxygen saturations were monitored continuously. The colonoscopy was accomplished without difficulty. The patient tolerated the procedure well. Findings: On digital rectal examination there was normal rectal tone. There were no external hemorrhoids. The prostate was 2+, smooth, soft, symmetric without nodules. The colonoscope was introduced through the anal canal to the rectum and advanced to the cecum. The ileocecal valve and appendiceal orifice were identified. The scope was advanced a short distance into the ileum which appeared grossly normal. The scope was then withdrawn into the colon. There was a single 2 to 3 mm transverse polyp removed via cold biopsy. The remaining cecum, ascending, transverse, descending, sigmoid and rectum were grossly normal. There were no mucosal abnormalities identified. Upon retroflexion within the rectum there were grade 2 internal hemorrhoids.The preparation was excellent throughout with Hyden Preparation Score of 9. The cecal time was 11 minutes. Impression: 1. Diminutive 2 to 3 mm transverse polyp 2. Grade 2 internal hemorrhoids Plan: I will follow-up the polyp histology and recommend repeat surveillance colonoscopy again in 7 to 10 years. I would encourage psyllium fiber supplementation on a maintenance basis.
[2024-02-18 10:54] VITALS: BP 109/66; PULSE 66; RESP 18; TEMP 36.9; O2SAT 98
[2024-02-18 11:04] VITALS: BP 117/61; PULSE 57; RESP 20; TEMP 36.9; O2SAT 96
[2024-02-18 11:14] VITALS: BP 109/58; PULSE 56; RESP 20; TEMP 36.9; O2SAT 96
[2024-02-18 11:30] VITALS: BP 109/74; PULSE 52; RESP 18; O2SAT 99
--- NOTE | 2024-02-18 11:35 | P.PNANES_ITS ---
[facility] Disclaimer: The information contained in this section may have been updated after the patient was seen, as this information can be updated by other users. Medical History (Updated 02/18/24 @ 10:24 by Jhonny Eden II, MD) No significant past medical history Surgical History History of esophagogastroduodenoscopy (EGD) Hx of colonoscopy Family History Other Family history of hypertension Social History Smoking Status: Never smoker alcohol intake: never substance use type: denies use current occupational status: employed [employer] Anesthesia Checklist Patient Identification Patient Identification: Arm Band Structural Data Admitted From: Home Planned Operative Procedure/s: EGD/Colonoscopy Consent for Planned Operative Procedure(s) Verified: Yes Verified Documents: Surgical Consent and History and Physical NPO Status Verified Time NPO: 00:00 Additional verifications Anesthesia Reactions: No Airway Assessment Mallampati Score:: Class II C-Spine Mobility Assessed: Yes TMJ Mobility Assessed: Yes Dentition: Good Dentition Neurological Assessment Level of Consciousness: Awake, Alert and Appropriate Anesthesia Plan Anesthesia Risk discussed: Yes Anesthesia Plan: Verified ASA Class: II Anesthesia Type: MAC
== END 2024-02-18 11:30 | disposition home or self-care (01) ==
PROVIDERS: Visit Provider Internal Medicine Gastroenterology
PROC: 0DJ08ZZ Inspection of Upper Intestinal Tract, Via Natural or Artificial Opening Endoscopic (ICD-10-PCS; CPT 43235; principal; 2024-02-18 10:00)
DX: R13.10 Dysphagia, unspecified (principal); Z12.11 Encounter for screening for malignant neoplasm of colon; J39.2 Other diseases of pharynx; K22.4 Dyskinesia of esophagus; K44.9 Diaphragmatic hernia without obstruction or gangrene; K31.9 Disease of stomach and duodenum, unspecified; K63.5 Polyp of colon; K64.1 Second degree hemorrhoids
CPT/HCPCS: 43239; 43249; 45380; C1726; J7120